=== PATIENT | female | born 1980 | race African-American/Black ===

== ENCOUNTER 2016-08-12 09:21 | Emergency (ER) | payer OTHER ==
[~2016-08-12] VITALS: Ht 165.1 cm; Wt 116.6 kg
[~2016-08-12 09:21] MED LIST: AMITRIPTYLINE25 MG ORAL; ASPIR 8181 MG ORAL; CARDIAZEM CD240 MG ORAL; CARDIZEM30 MG ORAL; CYCLOBENZAPRINE10 MG ORAL; GABAPENTIN600 MG ORAL; IBUPROFEN200 MG ORAL; IBUPROFEN600 MG ORAL; KETOCONAZOLE15 GM TOP; LOPRESSOR25 M1 ORAL; METOPROLOL SUCC25 MG ORAL; NKM; NORCO 5-325 TA1 EACH ORAL; OMEPRAZOLE20 M2 ORAL; PERCOCET 10-321 EAC1 PO; PREDNISONE20 MG ORAL; SOMA350 MG PO; TRAMADOL HCL50 MG ORAL; TRAZODONE HCL100 MG ORAL; WARFARIN SODIUM5 MG ORAL
[2016-08-12] MEDS ORDERED: ATORVASTATIN CA40 MG ORAL (09:50)
[2016-08-12] MEDS ORDERED: DILTIAZEM 24HR120 M1 ORAL (09:50)
[2016-08-12] MEDS ORDERED: XARELTO10 MG ORAL (09:50)
[2016-08-12] MEDS ORDERED: NORCO 10-325 T1 EACH ORAL (09:50)
[2016-08-12] MEDS ORDERED: OMEPRAZOLE20 M2 ORAL (09:52)
[2016-08-12] MEDS ORDERED: IBUPROFEN600 MG ORAL (09:52)
[2016-08-12] MEDS ORDERED: Famotidine 20 MG/ 2ML VIAL IVP ONE (10:00)
[2016-08-12 10:15] VITALS: BP 113/59
[2016-08-12] MEDS ORDERED: Morphine Sulfate 4mg/ml Inj IVP ONE (10:15)
[2016-08-12 10:19] LABS: APPEARANCE,URINE CLOUDY; KETONES,URINE 1+ (NEGATIVE); LEUKOCYTE ESTERASE ,URINE 1+ (NEGATIVE); NITRITE,URINE NEGATIVE (NEGATIVE); PH,URINE 5 (4.5-8.0); PROTEIN,URINE 3+ (NEGATIVE); UROBILINOGEN,URINE NORMAL MG/DL (0.0-1.0)
[2016-08-12 10:25] LABS: BACTERIA,URINE FEW /HPF; MUCUS,URINE FEW /LPF (NONE/OCC); RBC,URINE TNTC /HPF (0 - 2); SQUAMOUS EPITHELIAL CELL,UR FEW /LPF (NONE/OCC)
[2016-08-12 10:32] LABS: BASOPHILS % (AUTO) 1.3 % (0.0-2.0); EOSINOPHILS % (AUTO) 1.2 % (0.0-3.0); MEAN CORPUSCULAR HEMOGLOBIN 25.4 PG (27.0-31.0); MEAN CORPUSCULAR HGB CONC 31.2 G/DL (32.0-36.0); MEAN CORPUSCULAR VOLUME 81 FL (80-99); MEAN PLATELET VOLUME 6.7 FL (6.5-10.1); MONOCYTES % (AUTO) 4.2 % (1.0-10.0); NEUTROPHILS % (AUTO) 66.3 % (45.0-75.0); PLATELET COUNT 378 K/UL (150-450); RED BLOOD COUNT 4.86 M/UL (4.20-5.40); RED CELL DISTRIBUTION WIDTH 14.5 % (11.6-14.8); WHITE BLOOD COUNT 5.1 K/UL (4.8-10.8)
[2016-08-12 10:48] LABS: TROPONIN I < 0.30 ng/mL (<=0.30)
[2016-08-12 10:50] LABS: ALANINE AMINOTRANSFERASE 16 U/L (3-33); ALBUMIN/GLOBULIN RATIO 1.1 (1.0-2.7); ANION GAP 13 (5-15); ASPARTATE AMINO TRANSFERASE 15 U/L (5-40); CALCIUM 9.3 mg/dL (8.6-10.2); CARBON DIOXIDE 26 mEQ/L (20-30); CHLORIDE 99 mEQ/L (98-107); CREATININE 1.2 mg/dL (0.5-0.9); GLOMERULAR FILTRATION RATE > 60 mL/min (>60); HEMOLYSIS 2; LIPASE 33 U/L (< 60); POTASSIUM 3.8 mEQ/L (3.4-4.9); SODIUM 138 mEQ/L (135-145); TOTAL PROTEIN 7.8 g/dL (6.6-8.7)
[2016-08-12] MEDS ORDERED: RANITIDINE HCL150 MG ORAL (11:41)
[2016-08-12] MEDS ORDERED: ZOFRAN ODT4 MG ORAL (11:41)
[2016-08-12 11:50] VITALS: BP 114/72
--- NOTE | 2016-08-12 13:42 | Emergency Room Report ---
History of Present Illness General Chief Complaint: Nausea, Vomiting, and Diarrhea Source: Patient, Medical Record Present Illness HPI 36-year-old female presents to ED complaining of abdominal pain with vomiting and diarrhea x5 days. Pain is epigastric, 8/10, sharp. Nonradiating. No stable episodes of vomiting and diarrhea. Denies fevers or chills. Patient has history of chronic alcohol use and states she's been drinking daily. Denies sick contacts or recent travel. No other aggravating relieving factors. Denies any other associated symptoms Allergies: Coded Allergies: No Known Allergies (Unverified , 10/29/13) Patient History Past Medical History: HTN Past Surgical History: none Pertinent Family History: none Social History: Reports: alcohol use, Denies: drug use, smoking Last Menstrual Period: on period Now: No Immunizations: UTD Reviewed Nursing Documentation: PMH: Agreed, PSxH: Agreed Nursing Documentation-PMH Past Medical History: No History, Except For Hx Cardiac Problems: Yes - SVT (WPW) Hx Hypertension: Yes - PE Hx Cancer: No Hx Gastrointestinal Problems: No Review of Systems All Other Systems: negative except mentioned in HPI Physical Exam Vital Signs Date Time Temp Pulse Resp B/P Pulse Ox O2 Delivery O2 Flow Rate FiO2 08/12/16 09:41 97.2 77 16 129/63 100 Room Air Sp02 EP Interpretation: reviewed, normal General Appearance: no apparent distress, alert, GCS 15, non-toxic, obese Head: normocephalic Eyes: bilateral eye PERRL, bilateral eye normal inspection ENT: normal ENT inspection Neck: normal inspection Respiratory: chest non-tender, lungs clear, normal breath sounds, speaking full sentences Cardiovascular #1: regular rate, rhythm, no edema Gastrointestinal: normal bowel sounds, soft, non-distended, no guarding, no rebound, tenderness - epigastric Rectal: deferred Genitourinary: no CVA tenderness Musculoskeletal: normal inspection Neurologic: alert, oriented x3, responsive, motor strength/tone normal, sensory intact, speech normal Psychiatric: normal inspection Skin: normal inspection Lymphatic: normal inspection Medical Decision Making Diagnostic Impression: Primary Impression: Gastroenteritis ER Course Hospital Course 36-year-old F presents to ED with cramping abdominal pain with vomiting, diarrhea differential diagnosis: gastritis, SBO, cholecystits, gastroenteritis Clinical course Patient placed on stretcher. On quality assurance monitor final. After initial history and physical I ordered labs, IV fluids, Zofran and pepcid Labs - no leukocytosis, Cr 1.2, LFTs normal, UA unremarkable Upon reassessment, patient states pain has improved. findings consistent with gastroenteritis I feel this is a highly complex case requiring extensive working including EKG/ Rhythm strip, Xray/CT/US, Blood/urine lab work, repeat exams while in ED, and administration of strong opiates/narcotics for pain control, admission to hospital or close patient follow up. Diagnosis - gastroenteritis Stable and discharged to home with prescriptions for Zantac, zofran. Followup with PMD. Return to ED if symptoms recur or worsen Labs Test 08/12/16 09:35 08/12/16 09:58 Urine Color Red Urine Appearance Cloudy Urine pH 5 (4.5-8.0) Urine Specific [place] 1.025 (1.005-1.035) Urine Protein 3+ (NEGATIVE) Urine Glucose (UA) Negative (NEGATIVE) Urine Ketones 1+ (NEGATIVE) Urine Occult Blood 5+ (NEGATIVE) Urine Nitrite Negative (NEGATIVE) Urine Bilirubin Negative (NEGATIVE) Urine Urobilinogen Normal MG/DL (0.0-1.0) Urine Leukocyte Esterase 1+ (NEGATIVE) Urine RBC Tntc /HPF (0 - 2) Urine WBC 2-4 /HPF (0 - 2) Urine Squamous Epithelial Cells Few /LPF (NONE/OCC) Urine Bacteria Few /HPF (NONE) Urine Mucus Few /LPF (NONE/OCC) Urine HCG, Qualitative Negative White Blood Count 5.1 K/UL (4.8-10.8) Red Blood Count 4.86 M/UL (4.20-5.40) Hemoglobin 12.3 G/DL (12.0-16.0) Hematocrit 39.5 % (37.0-47.0) Mean Corpuscular Volume 81 FL (80-99) Mean Corpuscular Hemoglobin 25.4 PG (27.0-31.0) Mean Corpuscular Hemoglobin Concent 31.2 G/DL (32.0-36.0) Red Cell Distribution Width 14.5 % (11.6-14.8) Platelet Count 378 K/UL (150-450) Mean Platelet Volume 6.7 FL (6.5-10.1) Neutrophils (%) (Auto) 66.3 % (45.0-75.0) Lymphocytes (%) (Auto) 27.0 % (20.0-45.0) Monocytes (%) (Auto) 4.2 % (1.0-10.0) Eosinophils (%) (Auto) 1.2 % (0.0-3.0) Basophils (%) (Auto) 1.3 % (0.0-2.0) Sodium Level 138 mEQ/L (135-145) Potassium Level 3.8 mEQ/L (3.4-4.9) Chloride Level 99 mEQ/L (98-107) Carbon Dioxide Level 26 mEQ/L (20-30) Anion Gap 13 (5-15) Blood Urea Nitrogen 6 mg/dL (7-23) Creatinine 1.2 mg/dL (0.5-0.9) Estimat Glomerular Filtration Rate > 60 mL/min (>60) Glucose Level 111 mg/dL (74-106) Calcium Level 9.3 mg/dL (8.6-10.2) Total Bilirubin 0.3 mg/dL (0.0-1.2) Aspartate Amino Transf (AST/SGOT) 15 U/L (5-40) Alanine Aminotransferase (ALT/SGPT) 16 U/L (3-33) Alkaline Phosphatase 63 U/L (35-104) Troponin I < 0.30 ng/mL (<=0.30) Total Protein 7.8 g/dL (6.6-8.7) Albumin 4.2 g/dL (3.5-5.2) Globulin 3.6 g/dL Albumin/Globulin Ratio 1.1 (1.0-2.7) Lipase 33 U/L (< 60) EKG Diagnostic Results Rate: normal Rhythm: NSR ST Segments: no acute changes ASA given to the pt in ED: No Rhythm Strip Diag. Results EP Interpretation: yes Rhythm: NSR, no PVC's, no ectopy Last Vital Signs Date Time Temp Pulse Resp B/P Pulse Ox O2 Delivery O2 Flow Rate FiO2 08/12/16 11:50 70 20 114/72 100 Room Air 08/12/16 10:52 97.2 Status: improved Disposition: HOME, SELF-CARE Condition: Stable Scripts Ranitidine Hcl* (ZANTAC*) 150 Mg Tablet 150 MG ORAL TWICE A DAY, #30 TAB Prov: CAM PALMA M.D. 08/12/16 Ondansetron Odt* (ZOFRAN ODT*) 4 Mg Tab.rapdis 4 MG ORAL Q6H Y for Nausea & Vomiting, #30 TAB 0 Refills Prov: CAM PALMA M.D. 08/12/16 Patient Instructions: Viral Gastroenteritis, Adult, [id number] CAM PALMA M.D. Aug 12, 2016 13:42
--- NOTE | 2016-08-16 16:17 | Cardiology Report ---
APPROVED REPORT EKG Measurement Heart [id number] Normal sinus rhythm with sinus arrhythmia Normal ECG
== END 2016-08-12 11:56 | disposition home or self-care (01) ==
LOC: EMR 10:00
DX: K52.9 Noninfective gastroenteritis and colitis, unspecified (principal); F10.20 Alcohol dependence, uncomplicated; I10 Essential (primary) hypertension; Z86.711 Personal history of pulmonary embolism
CPT/HCPCS: 36415; 80053; 81003; 81025; 83690; 84484; 85025; 93005; 96374; 96375; 99284; J2270; J2405; S0028

== ENCOUNTER 2017-05-17 09:31 | Inpatient (IN) | payer OTHER ==
[~2017-05-17] VITALS: Ht 165.1 cm; Wt 95.3 kg
[~2017-05-17 09:31] MED LIST changes: +ATORVASTATIN CA40 MG ORAL; +DILTIAZEM 24HR120 M1 ORAL; +NORCO 10-325 T1 EACH ORAL; +RANITIDINE HCL150 MG ORAL; +XARELTO10 MG ORAL; +ZOFRAN ODT4 MG ORAL
[2017-05-17 10:48] LABS: APPEARANCE,URINE SLIGHTLY CLOUDY; BILIRUBIN, URINE NEGATIVE (NEGATIVE); GLUCOSE, URINE (UA) NEGATIVE (NEGATIVE); KETONES,URINE NEGATIVE (NEGATIVE); LEUKOCYTE ESTERASE ,URINE 1+ (NEGATIVE); NITRITE,URINE NEGATIVE (NEGATIVE); PH,URINE 5 (4.5-8.0); PROTEIN,URINE 1+ (NEGATIVE); UROBILINOGEN,URINE NORMAL MG/DL (0.0-1.0)
[2017-05-17 10:49] LABS: COLOR,URINE YELLOW
[2017-05-17 11:10] LABS: BASOPHILS % (AUTO) 0.8 % (0.0-2.0); EOSINOPHILS % (AUTO) 0.3 % (0.0-3.0); HEMOGLOBIN 11.6 G/DL (12.0-16.0); LYMPHOCYTES % (AUTO) 27.1 % (20.0-45.0); MEAN CORPUSCULAR VOLUME 82 FL (80-99); NEUTROPHILS % (AUTO) 67.9 % (45.0-75.0); PLATELET COUNT 393 K/UL (150-450); RED BLOOD COUNT 4.51 M/UL (4.20-5.40); RED CELL DISTRIBUTION WIDTH 13.4 % (11.6-14.8); WHITE BLOOD COUNT 5.5 K/UL (4.8-10.8)
[2017-05-17 11:26] LABS: ANION GAP 9 mmol/L (5-15); BLOOD UREA NITROGEN 7 mg/dL (7-18); CARBON DIOXIDE 28 MMOL/L (21-32); CHLORIDE 105 MMOL/L (98-107); CREATININE 1.2 MG/DL (0.55-1.30); POTASSIUM 3.8 MMOL/L (3.5-5.1); SODIUM 142 MMOL/L (136-145)
[2017-05-17 11:31] LABS: ALANINE AMINOTRANSFERASE 19 U/L (12-78); ALBUMIN 3.7 G/DL (3.4-5.0); ALBUMIN/GLOBULIN RATIO 0.9 (1.0-2.7); ALKALINE PHOSPHATASE 64 U/L (46-116); ASPARTATE AMINO TRANSFERASE 17 U/L (15-37); BILIRUBIN,TOTAL 0.4 MG/DL (0.2-1.0)
[2017-05-17] MEDS ORDERED: Ketorolac 30mg Inj IV ONE (11:45)
[2017-05-17] MEDS ORDERED: Lidocaine 2% Visc 15ml soln ORAL ONE (13:45)
[2017-05-17] MEDS ORDERED: Mylanta II UD 30ml ORAL PRN (17:00)
[2017-05-17] MEDS ORDERED: LORazepam Inj 2mg/ml 1ml IV PRN (17:00)
[2017-05-17] MEDS ORDERED: Miralax 17gm pkt ORAL PRN (17:00)
[2017-05-17] MEDS ORDERED: Nitroglycerin Subl 0.4mg tab SL PRN (17:00)
[2017-05-17 17:30] VITALS: BP 124/67
[2017-05-17] MEDS: D5 1/2NS 1,000 ML IV SCH (18:02)
[2017-05-17] MEDS: Morphine Sulfate 2mg/ml Inj IVP PRN ×2 (19:12→23:58)
--- NOTE | 2017-05-17 19:15 | Consultation ---
History of Present Illness General Date patient seen: May 17, 2017 Chief Complaint: Abdominal Pain Reason for Consultation: inpatient manangement Present Illness HPI 37 year old female with extensive PMH including SVt, PE, was taken to [facility] with CC of abodminal pain. She is transferred to [facility] for further evaluation. Allergies: Coded Allergies: No Known Allergies (Unverified , 10/29/13) Medication History Scheduled Amitriptyline HCl (Elavil*), 50 MG ORAL BEDTIME, (Reported) Atorvastatin Calcium* (Atorvastatin Calcium*), 40 MG ORAL BEDTIME, (Reported) Cyclobenzaprine Hcl* (Flexeril*), 5 MG ORAL THREE TIMES A DAY, (Reported) Diltiazem HCl (Diltiazem 24Hr Cd), 240 MG ORAL DAILY Gabapentin* (Gabapentin*), 600 MG ORAL THREE TIMES A DAY, (Reported) Ibuprofen (Ibuprofen*), 600 MG ORAL THREE TIMES A DAY, (Reported) Metoprolol Succinate* (Metoprolol Succinate*), 25 MG ORAL DAILY, (Reported) No Known Medications* (NKM - No Known Medications*), 0 ., (Reported) Omeprazole (Omeprazole), 20 MG ORAL DAILY, (Reported) Omeprazole (Omeprazole), 20 MG ORAL DAILY, (Reported) Ranitidine Hcl* (Zantac*), 150 MG ORAL TWICE A DAY Rivaroxaban (Xarelto*), 15 MG ORAL DAILY, (Reported) Trazodone Hcl* (Desyrel*), 100 MG ORAL BEDTIME, (Reported) Warfarin Sod* (Warfarin Sod*), 10 MG ORAL DAILY Scheduled PRN Hydrocodone Bit/Acetaminophen 10-325* ([place] 10-325*), 1 TAB ORAL Q4H PRN for For Pain, (Reported) Ibuprofen* (Motrin*), 600 MG ORAL Q8H PRN for For Pain Ibuprofen* (Motrin*), 800 MG ORAL Q8H PRN for For Pain, (Reported) Ondansetron Odt* (Zofran Odt*), 4 MG ORAL Q6H PRN for Nausea & Vomiting Tramadol Hcl* (Ultram*), 50 MG ORAL Q6H PRN for For Pain Miscellaneous Medications Ibuprofen (Ibuprofen*), 200 MG ORAL, (Reported) Patient History Healthcare decision maker Resuscitation status Full Code Advanced Directive on File No Past Medical/Surgical History Past Medical/Surgical History: (1) Wkwoa-Sdyaggueu-Gpnog (WPW) syndrome (2) Pulmonary embolism (3) SVT (supraventricular tachycardia) (4) GERD (gastroesophageal reflux disease) Review of Systems Gastrointestinal: Reports: abdominal pain All Other Systems: negative except mentioned in HPI Physical Exam General Appearance: WD/WN Lines, tubes and drains: peripheral, central line HEENT: normocephalic, atraumatic Neck: normal alignment, supple Respiratory/Chest: chest wall non-tender, normal breath sounds Breasts: no masses Cardiovascular/Chest: normal rate Abdomen: normal bowel sounds Genitourinary/Rectal: normal genital exam Extremities: normal range of motion Last 24 Hour Vital Signs Date Time Temp Pulse Resp B/P (MAP) Pulse Ox O2 Delivery O2 Flow Rate FiO2 05/17/17 17:30 69 21 124/67 97 Room Air 05/17/17 17:13 98.0 05/17/17 16:58 98.0 69 19 98 Room Air 05/17/17 09:39 98.1 73 14 136/71 98 Room Air Laboratory Tests Test 05/17/17 10:00 05/17/17 10:40 Urine Color Yellow Urine Appearance Slightly cloudy Urine pH 5 (4.5-8.0) Urine Specific [place] 1.020 (1.005-1.035) Urine Protein 1+ (NEGATIVE) H Urine Glucose (UA) Negative (NEGATIVE) Urine Ketones Negative (NEGATIVE) Urine Occult Blood 5+ (NEGATIVE) H Urine Nitrite Negative (NEGATIVE) Urine Bilirubin Negative (NEGATIVE) Urine Urobilinogen Normal MG/DL (0.0-1.0) Urine Leukocyte Esterase 1+ (NEGATIVE) H Urine RBC 5-10 /HPF (0 - 2) H Urine WBC 2-4 /HPF (0 - 2) Urine Squamous Epithelial Cells Few /LPF (NONE/OCC) Urine Bacteria Few /HPF (NONE) Urine HCG, Qualitative Negative White Blood Count 5.5 K/UL (4.8-10.8) Red Blood Count 4.51 M/UL (4.20-5.40) Hemoglobin 11.6 G/DL (12.0-16.0) L Hematocrit 37.0 % (37.0-47.0) Mean Corpuscular Volume 82 FL (80-99) Mean Corpuscular Hemoglobin 25.7 PG (27.0-31.0) L Mean Corpuscular Hemoglobin Concent 31.4 G/DL (32.0-36.0) L Red Cell Distribution Width 13.4 % (11.6-14.8) Platelet Count 393 K/UL (150-450) Mean Platelet Volume 6.3 FL (6.5-10.1) L Neutrophils (%) (Auto) 67.9 % (45.0-75.0) Lymphocytes (%) (Auto) 27.1 % (20.0-45.0) Monocytes (%) (Auto) 4.0 % (1.0-10.0) Eosinophils (%) (Auto) 0.3 % (0.0-3.0) Basophils (%) (Auto) 0.8 % (0.0-2.0) Sodium Level 142 MMOL/L (136-145) Potassium Level 3.8 MMOL/L (3.5-5.1) Chloride Level 105 MMOL/L (98-107) Carbon Dioxide Level 28 MMOL/L (21-32) Anion Gap 9 mmol/L (5-15) Blood Urea Nitrogen 7 mg/dL (7-18) Creatinine 1.2 MG/DL (0.55-1.30) Estimat Glomerular Filtration Rate > 60 mL/min (>60) Glucose Level 89 MG/DL (74-106) Calcium Level 9.0 MG/DL (8.5-10.1) Total Bilirubin 0.4 MG/DL (0.2-1.0) Aspartate Amino Transf (AST/SGOT) 17 U/L (15-37) Alanine Aminotransferase (ALT/SGPT) 19 U/L (12-78) Alkaline Phosphatase 64 U/L (46-116) Total Protein 8.0 G/DL (6.4-8.2) Albumin 3.7 G/DL (3.4-5.0) Globulin 4.3 g/dL Albumin/Globulin Ratio 0.9 (1.0-2.7) L Lipase 115 U/L (73-393) Height (Feet): 5 Height (Inches): 5.00 Weight (Pounds): 210 Medications Current Medications Medications (Trade) Dose Ordered Sig/Shanelle Route PRN Reason Start Time Stop Time Status Last Admin Dose Admin Acetaminophen (Tylenol) 650 mg Q4H PRN ORAL fever 05/17/17 17:00 06/16/17 16:59 Al Hydroxide/Mg Hydroxide (Mylanta II) 30 ml Q6H PRN ORAL dyspepsia 05/17/17 17:00 06/16/17 16:59 Dextrose (Dextrose 50%) STAT PRN IV Hypoglycemia 05/17/17 17:00 06/16/17 16:59 Dextrose/Sodium Chloride 1,000 ml @ 75 mls/hr [id number] IV 05/17/17 18:00 06/16/17 17:59 05/17/17 18:02 Diphenhydramine HCl (Benadryl) 25 mg Q6H PRN ORAL Itching/Pruritis 05/17/17 17:00 06/16/17 16:59 Heparin Sodium (Porcine) (Heparin 5000 units/ml) 5,000 units EVERY 12 HOURS SUBQ 05/17/17 21:00 06/16/17 20:59 Lorazepam (Ativan 2mg/ml 1ml) 1 mg Q4H PRN IV agitation 05/17/17 17:00 05/24/17 16:59 Morphine Sulfate (Morphine Sulfate) 2 mg Q4H PRN IVP severe Pain (Pain Scale 7-10) 05/17/17 17:00 05/24/17 16:59 05/17/17 19:12 Nitroglycerin (Ntg) 0.4 mg Q5M X 3 DOSES PRN SL Prn Chest Pain 05/17/17 17:00 06/16/17 16:59 Ondansetron HCl (Zofran) 4 mg Q6H PRN IVP Nausea & Vomiting 05/17/17 17:00 06/16/17 16:59 Pantoprazole (Protonix) 40 mg DAILY IV 05/18/17 09:00 06/17/17 08:59 Polyethylene Glycol (Miralax) 17 gm HSPRN PRN ORAL Constipation 05/17/17 17:00 06/16/17 16:59 Promethazine HCl (Phenergan) 25 mg Q8H PRN IV refractory nausea 05/17/17 17:00 06/16/17 16:59 Temazepam (Restoril) 15 mg HSPRN PRN ORAL Insomnia 05/17/17 17:00 05/24/17 16:59 Assessment/Plan Problem List: (1) Epigastric abdominal pain ICD Codes: R10.13 - Epigastric pain SNOMED: 76466646 (2) Nausea & vomiting ICD Codes: R11.2 - Nausea with vomiting, unspecified SNOMED: 06692565 (3) Gslop-Oaqgoqjfu-Mxgqj (WPW) syndrome ICD Codes: I45.6 - Pre-excitation syndrome SNOMED: 80448675 (4) HTN (hypertension) ICD Codes: I10 - Essential (primary) hypertension SNOMED: 80025003 (5) Pulmonary embolism ICD Codes: I26.99 - Other pulmonary embolism without acute cor pulmonale SNOMED: 22593645 (6) SVT (supraventricular tachycardia) ICD Codes: I47.1 - Supraventricular tachycardia SNOMED: 1310095 Assessment/Plan NPO GI evaluation Surgery evaluation IV fluids symptomatic treatment LARY REYNA May 17, 2017 19:15
--- NOTE | 2017-05-17 19:19 | History & Physical ---
History and Physical History & Physicial Dictated for Int Med-Dr Blanca no. [id number]. ALFREDO CARDENAS May 17, 2017 19:19
[2017-05-17 20:00] VITALS: BP 101/77
--- NOTE | 2017-05-17 20:30 | History and Physical Report ---
DATE OF ADMISSION: 05/17/2017 CHIEF COMPLAINT: The patient is a 37-year-old female, presents with chief complaint of nausea, vomiting, and abdominal pain. HISTORY OF PRESENT ILLNESS: The patient states present illness began approximately nine months ago. The patient began to experience nausea and vomiting. This usually occurs early in the morning. This wakes her from sleep from 5 a.m. The patient then experiences nausea, vomiting, and abdominal pain for approximately five hours in the morning. The patient has seen her primary care physician. The patient was referred to Gastroenterology, however, the patient states the appointment was . The patient presents to [facility] today with intractable nausea, vomiting, and abdominal pain. REVIEW OF SYSTEMS: CONSTITUTIONAL: The patient denies weight loss or weight gain. The patient denies fevers or chills. HEENT: The patient denies ear or throat pain. The patient denies headache. CARDIOVASCULAR: The patient denies palpitations or chest pain. CHEST: The patient denies wheezes or shortness of breath. ABDOMINAL: The patient complains of nausea, vomiting, and epigastric pain as above. The patient denies diarrhea or constipation. GENITOURINARY: The patient denies dysuria or increased frequency of urination. NEUROMUSCULAR: The patient denies seizures or generalized weakness. PAST MEDICAL HISTORY: 1. Significant for Zsiex-Jzbufjiab-Xelfn syndrome, status post ablation. 2. History of supraventricular tachycardia. 3. History of coronary artery disease. 4. History of pulmonary embolism in 2015. PAST SURGICAL HISTORY: Significant for: 1. Ablation of supraventricular tachycardia in the as above. 2. Failed ablation of SVT in 2014. CURRENT MEDICATIONS: 1. Amitriptyline 25 mg two tablets p.o. at bedtime. 2. Atorvastatin 40 mg p.o. at bedtime. 3. Flexeril 5 mg p.o. three times daily. 4. Diltiazem ER 240 mg p.o. daily. 5. Gabapentin 600 mg p.o. three times daily. 6. [place] 10/325 mg one tablet p.o. q.4 hours p.r.n. 7. Ibuprofen 200 mg p.o. q.6 hours p.r.n. 8. Metoprolol 25 mg p.o. daily. 9. Omeprazole 20 mg p.o. daily. 10. Zofran 4 mg p.o. q.6 hours p.r.n. 11. Zantac 150 mg p.o. twice daily. 12. Xarelto 15 mg p.o. daily. 13. Tramadol 50 mg two tablets p.o. at bedtime. ALLERGIES: No known drug allergies. SOCIAL HISTORY: The patient is single. The patient is disabled. The patient denies tobacco use, having quit in 2015. The patient denies alcohol use. PHYSICAL EXAMINATION: VITAL SIGNS: Temperature 98.1, respirations 14, pulse 73, and blood pressure 136/71. GENERAL: The patient is well-developed and well-nourished obese female, in no apparent distress. HEENT: Eyes, pupils equal and responsive to light and accommodation. Extraocular movements are intact. NECK: Supple without lymphadenopathy. CHEST: Lungs are clear to auscultation bilaterally without wheezes or rales. CARDIOVASCULAR: Regular rhythm and rate. S1, S2 are normal without murmurs, rubs, or gallops. ABDOMEN: Soft, tender to palpation in all four quadrants, with positive bowel sounds. No evidence of hepatosplenomegaly. Currently, no rebound or guarding noted. EXTREMITIES: Negative for clubbing, cyanosis, or edema. RECTAL/GENITAL: Refused. NEUROLOGIC: Cranial nerves II through XII are grossly intact without focal deficits. Motor strength is 5/5 bilaterally. LABORATORY STUDIES: WBC 6.5, hemoglobin 11.6, hematocrit 37.0, and platelets 393,000. Sodium 142, potassium 3.8, chloride 105, CO2 28, BUN 7, creatinine 1.2, and glucose 89. ASSESSMENT: This is a 37-year-old female with: 1. Epigastric pain. 2. Intractable nausea with vomiting. 3. Supraventricular tachycardia. 4. Wgmht-Gahsdtpoj-Irkqg syndrome. 5. Hypertension. 6. History of coronary artery disease. TREATMENT: 1. Epigastric pain/nausea/vomiting. A Gastroenterology consultation has been obtained with Dr. Roni Lewis. The patient may require endoscopy during this hospitalization. The patient has been placed empirically on a clear liquid diet. 2. Supraventricular tachycardia/Xtasb-Tkkbwwqtw-Wbgij syndrome. A Cardiology consultation has been obtained with Dr. Jj Escamilla. 3. Hypertension. Continue Cardizem and metoprolol as above. 4. Coronary artery disease. 5. History of pulmonary embolism. Continue Xarelto as above. Jone Elizabeth M.D. DR: CASSIE JOB#: [id number] CC:
[2017-05-17] MEDS: Heparin 5000 units/ml inj SUBQ SCH (21:01)
[2017-05-18] VITALS: BP 103/76
[2017-05-18 04:00] VITALS: BP 120/78
[2017-05-18] MEDS: D5 1/2NS 1,000 ML IV SCH ×2 (06:02→20:40)
[2017-05-18 07:44] LABS: HEMOGLOBIN 10.2 G/DL (12.0-16.0); MEAN CORPUSCULAR VOLUME 82 FL (80-99); PLATELET COUNT 284 K/UL (150-450); RED BLOOD COUNT 3.79 M/UL (4.20-5.40); RED CELL DISTRIBUTION WIDTH 13.6 % (11.6-14.8); WHITE BLOOD COUNT 4.4 K/UL (4.8-10.8)
[2017-05-18 08:00] VITALS: BP 122/79
[2017-05-18 08:06] LABS: ALANINE AMINOTRANSFERASE 18 U/L (12-78); ALBUMIN/GLOBULIN RATIO 0.8 (1.0-2.7); ALKALINE PHOSPHATASE 53 U/L (46-116); AMYLASE 64 U/L (25-115); ANION GAP 8 mmol/L (5-15); ASPARTATE AMINO TRANSFERASE 15 U/L (15-37); BILIRUBIN,TOTAL 0.4 MG/DL (0.2-1.0); BLOOD UREA NITROGEN 8 mg/dL (7-18); CALCIUM 8.6 MG/DL (8.5-10.1); CARBON DIOXIDE 27 MMOL/L (21-32); CHLORIDE 106 MMOL/L (98-107); CREATININE 1.2 MG/DL (0.55-1.30); POTASSIUM 3.7 MMOL/L (3.5-5.1); SODIUM 141 MMOL/L (136-145)
[2017-05-18] MEDS: Morphine Sulfate 2mg/ml Inj IVP PRN ×4 (08:34→20:40)
[2017-05-18] MEDS: Pantoprazole Inj IV SCH (08:34)
[2017-05-18] MEDS: Heparin 5000 units/ml inj SUBQ SCH ×2 (08:40→20:41)
[2017-05-18 12:00] VITALS: BP 131/73
--- NOTE | 2017-05-18 13:13 | GI Initial Consult Note ---
History of Present Illness General Date patient seen: May 18, 2017 Time patient seen: 11:00 Reason for Hospitalization: Abdominal Pain Referring physician: CHAVEZ CARTER Reason for Consultation: VOMITTING Present Illness HPI HISTORY OF PRESENT ILLNESS: The patient states present illness began approximately nine months ago. The patient began to experience nausea and vomiting. This usually occurs early in the morning. This wakes her from sleep from 5 a.m. The patient then experiences nausea, vomiting, and abdominal pain for approximately five hours in the morning. The patient has seen her primary care physician. The patient presents to [facility] today with intractable nausea, vomiting, and abdominal pain. GI consulted for vomiting. HPI noted above. Pt seen on floor, awake A&Ox4 NAD with no active s/sx of N/V/D. Per patient she's had random bouts of vomiting for the past 9 months with multiple hospital admissions with no definitive diagnosis. She presents to [place] today with similar condition c/ o of previous vomiting and diffused abdominal pain. Denies any hematemesis or coffee grounds. She denies any tobacco and drug use. Has quit ETOH 9 months ago when her vomiting began. Labs reviewed show anemia. No leukocytosis. Lipase normal. No history of endoscopic procedures. Home Meds Active Scripts Ranitidine Hcl* (ZANTAC*) 150 Mg Tablet, 150 MG ORAL TWICE A DAY, #30 TAB Prov:CAM PALMA M.D. 08/12/16 Ondansetron Odt* (ZOFRAN ODT*) 4 Mg Tab.rapdis, 4 MG ORAL Q6H Y for Nausea & Vomiting, #30 TAB 0 Refills Prov:CAM PALMA M.D. 08/12/16 Warfarin Sod* (WARFARIN SOD*) 5 Mg Tablet, 10 MG ORAL DAILY, #60 TAB 3 Refills Prov:Anthony Arreaga MD 11/14/15 Diltiazem HCl (Diltiazem 24Hr Cd) 240 Mg Cap.er.24h, 240 MG ORAL DAILY, #30 CAP 3 Refills Do not open, chew or crush capsule; swallow whole Prov:Anthony Arreaga MD 11/14/15 Ibuprofen* (MOTRIN*) 600 Mg Tablet, 600 MG ORAL Q8H Y for For Pain, #30 TAB 0 Refills Prov:CAM PALMA M.D. 02/28/15 Tramadol Hcl* (ULTRAM*) 50 Mg Tablet, 50 MG ORAL Q6H Y for For Pain, #20 TAB Prov:VAMSHI JIMENEZ 07/31/14 Reported Medications Omeprazole (OMEPRAZOLE) 20 Mg Capsule.dr, 20 MG ORAL DAILY, CAP 08/12/16 Ibuprofen* (MOTRIN*) 600 Mg Tablet, 800 MG ORAL Q8H Y for For Pain, #30 TAB 0 Refills 08/12/16 Hydrocodone Bit/Acetaminophen 10-325* (NORCO 10-325*) 1 Each Tablet, 1 TAB ORAL Q4H Y for For Pain, TAB 0 Refills PRN PAIN 08/12/16 Rivaroxaban (XARELTO*) 10 Mg Tablet, 15 MG ORAL DAILY, #30 TAB 0 Refills 08/12/16 Atorvastatin Calcium* (ATORVASTATIN CALCIUM*) 40 Mg Tablet, 40 MG ORAL BEDTIME, TAB 08/12/16 Cyclobenzaprine Hcl* (FLEXERIL*) 10 Mg Tablet, 5 MG ORAL THREE TIMES A DAY, TAB 11/02/15 Metoprolol Succinate* (METOPROLOL SUCCINATE*) 25 Mg Tab.er.24h, 25 MG ORAL DAILY , TAB 11/02/15 Omeprazole (OMEPRAZOLE) 20 Mg Capsule.dr, 20 MG ORAL DAILY, CAP 11/02/15 Gabapentin* (GABAPENTIN*) 600 Mg Tablet, 600 MG ORAL THREE TIMES A DAY, TAB 11/02/15 Trazodone Hcl* (DESYREL*) 100 Mg Tablet, 100 MG ORAL BEDTIME, TAB 02/28/15 Amitriptyline HCl (ELAVIL*) 25 Mg Tab, 50 MG ORAL BEDTIME, TAB 02/28/15 Ibuprofen (IBUPROFEN*) 200 Mg Tablet, 600 MG ORAL THREE TIMES A DAY, #30 TAB 0 Refills 02/28/15 Ibuprofen (IBUPROFEN*) 200 Mg Tablet, 200 MG ORAL, #30 TAB 0 Refills 02/28/15 No Known Medications* (NKM - No Known Medications*) ., 0 ., 0 Refills 11/24/13 Med list reviewed/reconciled: Yes Allergies: Coded Allergies: No Known Allergies (Unverified , 10/29/13) Patient History History Provided By: Patient, Medical Record PMH Narrative 1. Significant for Wmhct-Xoaanccph-Mdtbt syndrome, status post ablation. 2. History of supraventricular tachycardia. 3. History of coronary artery disease. 4. History of pulmonary embolism in 2016. PAST SURGICAL HISTORY: Significant for: 1. Ablation of supraventricular tachycardia in the as above. 2. Failed ablation of SVT in 2014. Social History: Denies: smoking, alcohol use, drug use, other Review of Systems All Other Systems: negative except mentioned in HPI Physical Exam Vital Signs Date Time Temp Pulse Resp B/P (MAP) Pulse Ox O2 Delivery O2 Flow Rate FiO2 05/17/17 09:39 98.1 73 14 136/71 98 Room Air Sp02 EP Interpretation: reviewed, normal Labs Laboratory Tests Test 05/18/17 05:35 White Blood Count 4.4 K/UL (4.8-10.8) L Red Blood Count 3.79 M/UL (4.20-5.40) L Hemoglobin 10.2 G/DL (12.0-16.0) L Hematocrit 31.0 % (37.0-47.0) L Mean Corpuscular Volume 82 FL (80-99) Mean Corpuscular Hemoglobin 26.9 PG (27.0-31.0) L Mean Corpuscular Hemoglobin Concent 32.9 G/DL (32.0-36.0) Red Cell Distribution Width 13.6 % (11.6-14.8) Platelet Count 284 K/UL (150-450) Mean Platelet Volume 6.7 FL (6.5-10.1) Neutrophils (%) (Auto) % (45.0-75.0) Lymphocytes (%) (Auto) % (20.0-45.0) Monocytes (%) (Auto) % (1.0-10.0) Eosinophils (%) (Auto) % (0.0-3.0) Basophils (%) (Auto) % (0.0-2.0) Neutrophils % (Manual) Pending Lymphocytes % (Manual) Pending Platelet Estimate Pending Platelet Morphology Pending Activated Partial Thromboplast Time 31 SEC (23-33) Sodium Level 141 MMOL/L (136-145) Potassium Level 3.7 MMOL/L (3.5-5.1) Chloride Level 106 MMOL/L (98-107) Carbon Dioxide Level 27 MMOL/L (21-32) Anion Gap 8 mmol/L (5-15) Blood Urea Nitrogen 8 mg/dL (7-18) Creatinine 1.2 MG/DL (0.55-1.30) Estimat Glomerular Filtration Rate > 60 mL/min (>60) Glucose Level 83 MG/DL (74-106) Calcium Level 8.6 MG/DL (8.5-10.1) Total Bilirubin 0.4 MG/DL (0.2-1.0) Aspartate Amino Transf (AST/SGOT) 15 U/L (15-37) Alanine Aminotransferase (ALT/SGPT) 18 U/L (12-78) Alkaline Phosphatase 53 U/L (46-116) Total Protein 6.6 G/DL (6.4-8.2) Albumin 3.0 G/DL (3.4-5.0) L Globulin 3.6 g/dL Albumin/Globulin Ratio 0.8 (1.0-2.7) L Amylase Level 64 U/L (25-115) Lipase 120 U/L (73-393) General Appearance: well appearing, no apparent distress, alert, obese Head: normocephalic EENT: PERRL/EOMI, normal ENT inspection Neck: supple Respiratory: normal breath sounds, no respiratory distress Cardiovascular: normal rate Gastrointestinal: normal inspection, non tender, soft, normal bowel sounds, non -distended Rectal: deferred Genitourinary: no CVA tenderness Musculoskeletal: normal inspection, back normal Neurologic: normal inspection, alert, oriented x3, responsive Psychiatric: normal inspection, judgement/insight normal, memory normal Skin: normal inspection, normal color, no rash, warm/dry, palpation normal, well hydrated Lymphatic: normal inspection, no adenopathy Current Medications Current Medications Medications (Trade) Dose Ordered Sig/Shanelle Route PRN Reason Start Time Stop Time Status Last Admin Dose Admin Acetaminophen (Tylenol) 650 mg Q4H PRN ORAL fever 05/17/17 17:00 06/16/17 16:59 Al Hydroxide/Mg Hydroxide (Mylanta II) 30 ml Q6H PRN ORAL dyspepsia 05/17/17 17:00 06/16/17 16:59 Dextrose (Dextrose 50%) STAT PRN IV Hypoglycemia 05/17/17 17:00 06/16/17 16:59 Dextrose/Sodium Chloride 1,000 ml @ 75 mls/hr [id number] IV 05/17/17 18:00 2/10/18 17:59 05/18/17 06:02 Diphenhydramine HCl (Benadryl) 25 mg Q6H PRN ORAL Itching/Pruritis 05/17/17 17:00 06/16/17 16:59 Heparin Sodium (Porcine) (Heparin 5000 units/ml) 5,000 units EVERY 12 HOURS SUBQ 05/17/17 21:00 06/16/17 20:59 05/18/17 08:40 Lorazepam (Ativan 2mg/ml 1ml) 1 mg Q4H PRN IV agitation 05/17/17 17:00 05/24/17 16:59 Morphine Sulfate (Morphine Sulfate) 2 mg Q4H PRN IVP severe Pain (Pain Scale 7-10) 05/17/17 17:00 05/24/17 16:59 05/18/17 12:40 Nitroglycerin (Ntg) 0.4 mg Q5M X 3 DOSES PRN SL Prn Chest Pain 05/17/17 17:00 06/16/17 16:59 Ondansetron HCl (Zofran) 4 mg Q6H PRN IVP Nausea & Vomiting 05/17/17 17:00 06/16/17 16:59 Pantoprazole (Protonix) 40 mg DAILY IV 05/18/17 09:00 06/17/17 08:59 05/18/17 08:34 Polyethylene Glycol (Miralax) 17 gm HSPRN PRN ORAL Constipation 05/17/17 17:00 06/16/17 16:59 Promethazine HCl (Phenergan) 25 mg Q8H PRN IV refractory nausea 05/17/17 17:00 06/16/17 16:59 Temazepam (Restoril) 15 mg HSPRN PRN ORAL Insomnia 05/17/17 17:00 05/24/17 16:59 05/17/17 21:11 GI: Plan Problems: (1) Vomiting (2) GERD (gastroesophageal reflux disease) Plan ordered utox ordered UGI series r/o dysmotility, will consider gastric emptying study or endoscopy if necessary low dose reglan ATC CLD, adv as tolerated anemia work up OB stool r/o GI bleed monitor H&H, prn transfusions bowel regime ppi PO fu labs Discussed with Dr. Lewis. Thank you for this patient referral, we will follow. Martina Arenas N.P. May 18, 2017 13:13
[2017-05-18 16:00] VITALS: BP 122/77
--- NOTE | 2017-05-18 16:19 | Diagnostic Imaging Report ---
Indication: Abdominal pain Technique: The plantar grayscale and color Doppler imaging of the abdomen. Comparison: CT of the abdomen/pelvis 11/12/2015. Findings: Imaged portions of the pancreatic head are unremarkable in appearance. The body and tail are not seen. Liver is normal in size, contour and echogenicity. There is a focus of hyperechogenicity in the liver which most likely is related to fat along the falciform ligament. No focal liver lesion is appreciated sonographically. The main portal vein and image hepatic veins are patent. There is a Phrygian gallbladder cap. The gallbladder is unremarkable in appearance. No pericholecystic fluid. No definite cholelithiasis. Sonographic Shi sign reported as positive. No intrahepatic or extrahepatic biliary duct dilatation. Common bile duct measures 5.89 m. A shadowing echogenic focus adjacent to the gallbladder fossa most likely related to air within the adjacent stomach or duodenum appear Right kidney measures 10.8 cm in length. Left kidney measures 9.7 cm in length. Kidneys demonstrate normal parenchymal thickness and echogenicity. There is no hydronephrosis or sonographically appreciable stone. Simple renal cysts noted bilaterally. Spleen unremarkable in size and appearance. Imaged portions of the aorta and IVC unremarkable in appearance. There is no ascites. Impression: Reported positive sonographic Shi sign. No gallbladder stones or sludge identified. No pericholecystic fluid. Gallbladder wall may be borderline thickened versus artifact. Findings are equivocal. Correlate clinically to assess for cholecystitis. HIDA scan may be obtained for further evaluation as clinically indicated.
--- NOTE | 2017-05-18 18:41 | Internal Med Progress Note ---
Subjective Date of Service: May 18, 2017 Physician Name Jone Cardenas Attending Physician Leonard Blanca MD Current Medications Medications (Trade) Dose Ordered Sig/Shanelle Route PRN Reason Start Time Stop Time Status Last Admin Dose Admin Acetaminophen (Tylenol) 650 mg Q4H PRN ORAL fever 05/17/17 17:00 06/16/17 16:59 Al Hydroxide/Mg Hydroxide (Mylanta II) 30 ml Q6H PRN ORAL dyspepsia 05/17/17 17:00 06/16/17 16:59 Dextrose (Dextrose 50%) STAT PRN IV Hypoglycemia 05/17/17 17:00 06/16/17 16:59 Dextrose/Sodium Chloride 1,000 ml @ 75 mls/hr [id number] IV 05/17/17 18:00 06/16/17 17:59 05/18/17 06:02 Diphenhydramine HCl (Benadryl) 25 mg Q6H PRN ORAL Itching/Pruritis 05/17/17 17:00 06/16/17 16:59 Heparin Sodium (Porcine) (Heparin 5000 units/ml) 5,000 units EVERY 12 HOURS SUBQ 05/17/17 21:00 06/16/17 20:59 05/18/17 08:40 Lorazepam (Ativan 2mg/ml 1ml) 1 mg Q4H PRN IV agitation 05/17/17 17:00 05/24/17 16:59 Metoclopramide HCl (Reglan) 5 mg TID ORAL 05/18/17 18:00 06/17/17 17:59 05/18/17 18:14 Morphine Sulfate (Morphine Sulfate) 2 mg Q4H PRN IVP severe Pain (Pain Scale 7-10) 05/17/17 17:00 05/24/17 16:59 05/18/17 16:20 Nitroglycerin (Ntg) 0.4 mg Q5M X 3 DOSES PRN SL Prn Chest Pain 05/17/17 17:00 06/16/17 16:59 Ondansetron HCl (Zofran) 4 mg Q6H PRN IVP Nausea & Vomiting 05/17/17 17:00 06/16/17 16:59 Pantoprazole (Protonix) 40 mg DAILY IV 05/18/17 09:00 06/17/17 08:59 05/18/17 08:34 Polyethylene Glycol (Miralax) 17 gm HSPRN PRN ORAL Constipation 05/17/17 17:00 06/16/17 16:59 Temazepam (Restoril) 15 mg HSPRN PRN ORAL Insomnia 05/17/17 17:00 05/24/17 16:59 05/17/17 21:11 Allergies: Coded Allergies: No Known Allergies (Unverified , 10/29/13) ROS Limited/Unobtainable: No Constitutional: Reports: no symptoms HEENT: Reports: no symptoms Cardiovascular: Reports: no symptoms Respiratory: Reports: no symptoms Gastrointestinal/Abdominal: Reports: abdominal pain, nausea, vomiting Neurologic/Psychiatric: Reports: no symptoms Subjective 37 YO F admitted with intractable nausea/vomiting and epigastric pain. Cover for Int Med-Dr Blanca. Await upper GI series and cardiology consult. Objective Last Vital Signs Date Time Temp Pulse Resp B/P (MAP) Pulse Ox O2 Delivery O2 Flow Rate FiO2 05/18/17 16:00 97.9 51 18 122/77 100 Room Air General Appearance: WD/WN, no apparent distress, alert EENT: PERRL/EOMI, normal ENT inspection Neck: non-tender, normal alignment, supple, normal inspection Cardiovascular: normal peripheral pulses, normal rate, regular rhythm, no gallop/murmur, no JVD Respiratory/Chest: chest wall non-tender, lungs clear, normal breath sounds, no respiratory distress, no accessory muscle use Abdomen: no organomegaly, no mass, decreased bowel sounds, guarding, tender Extremities: normal range of motion 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, no motor/sensory deficits Skin: normal pigmentation, warm/dry Laboratory Tests Test 05/18/17 05:35 White Blood Count 4.4 K/UL (4.8-10.8) L Red Blood Count 3.79 M/UL (4.20-5.40) L Hemoglobin 10.2 G/DL (12.0-16.0) L Hematocrit 31.0 % (37.0-47.0) L Mean Corpuscular Volume 82 FL (80-99) Mean Corpuscular Hemoglobin 26.9 PG (27.0-31.0) L Mean Corpuscular Hemoglobin Concent 32.9 G/DL (32.0-36.0) Red Cell Distribution Width 13.6 % (11.6-14.8) Platelet Count 284 K/UL (150-450) Mean Platelet Volume 6.7 FL (6.5-10.1) Neutrophils (%) (Auto) % (45.0-75.0) Lymphocytes (%) (Auto) % (20.0-45.0) Monocytes (%) (Auto) % (1.0-10.0) Eosinophils (%) (Auto) % (0.0-3.0) Basophils (%) (Auto) % (0.0-2.0) Differential Total Cells Counted 100 Neutrophils % (Manual) 30 % (45-75) L Lymphocytes % (Manual) 64 % (20-45) H Monocytes % (Manual) 4 % (1-10) Eosinophils % (Manual) 1 % (0-3) Basophils % (Manual) 1 % (0-2) Band Neutrophils 0 % (0-8) Platelet Estimate Adequate Platelet Morphology Normal Hypochromasia 1+ Anisocytosis 1+ Activated Partial Thromboplast Time 31 SEC (23-33) Sodium Level 141 MMOL/L (136-145) Potassium Level 3.7 MMOL/L (3.5-5.1) Chloride Level 106 MMOL/L (98-107) Carbon Dioxide Level 27 MMOL/L (21-32) Anion Gap 8 mmol/L (5-15) Blood Urea Nitrogen 8 mg/dL (7-18) Creatinine 1.2 MG/DL (0.55-1.30) Estimat Glomerular Filtration Rate > 60 mL/min (>60) Glucose Level 83 MG/DL (74-106) Calcium Level 8.6 MG/DL (8.5-10.1) Total Bilirubin 0.4 MG/DL (0.2-1.0) Aspartate Amino Transf (AST/SGOT) 15 U/L (15-37) Alanine Aminotransferase (ALT/SGPT) 18 U/L (12-78) Alkaline Phosphatase 53 U/L (46-116) Total Protein 6.6 G/DL (6.4-8.2) Albumin 3.0 G/DL (3.4-5.0) L Globulin 3.6 g/dL Albumin/Globulin Ratio 0.8 (1.0-2.7) L Amylase Level 64 U/L (25-115) Lipase 120 U/L (73-393) Intake and Output 1/11/18 1/12/18 19:00 07:00 Intake Total 1075 ml 750 ml Balance 1075 ml 750 ml IV Total 1075 ml 750 ml # Voids 1 3 Assessment/Plan Problem List: (1) Epigastric abdominal pain Assessment & Plan: See ultrasound result. Await HIDA. Await surgery consult. Lipase normal. (2) Nausea & vomiting Assessment & Plan: See GI note. Clear liquid diet. Await upper GI series (3) SVT (supraventricular tachycardia) (4) Jwseb-Kfnualupd-Oxqel (WPW) syndrome Assessment & Plan: Await cardiology consult. (5) HTN (hypertension) (6) CAD (coronary artery disease) (7) Pulmonary embolism Assessment & Plan: by history Status: not improved JONE CARDENAS May 18, 2017 18:41
[2017-05-18 20:00] VITALS: BP 124/75
[2017-05-19] VITALS: BP 126/76
[2017-05-19 07:25] LABS: BASOPHILS % (AUTO) 1.2 % (0.0-2.0); EOSINOPHILS % (AUTO) 1.3 % (0.0-3.0); HEMATOCRIT 33.4 % (37.0-47.0); HEMOGLOBIN 10.8 G/DL (12.0-16.0); LYMPHOCYTES % (AUTO) 49.2 % (20.0-45.0); MEAN CORPUSCULAR VOLUME 82 FL (80-99); MONOCYTES % (AUTO) 5.9 % (1.0-10.0); NEUTROPHILS % (AUTO) 42.4 % (45.0-75.0); PLATELET COUNT 342 K/UL (150-450); RED BLOOD COUNT 4.06 M/UL (4.20-5.40); RED CELL DISTRIBUTION WIDTH 13.3 % (11.6-14.8); WHITE BLOOD COUNT 3.8 K/UL (4.8-10.8)
[2017-05-19 08:00] VITALS: BP 134/78
[2017-05-19] MEDS: Pantoprazole Inj IV SCH (08:11)
[2017-05-19] MEDS: Morphine Sulfate 2mg/ml Inj IVP PRN (08:12)
[2017-05-19] MEDS: Heparin 5000 units/ml inj SUBQ SCH (08:12)
[2017-05-19 08:14] LABS: ANION GAP 9 mmol/L (5-15); BLOOD UREA NITROGEN 10 mg/dL (7-18); CARBON DIOXIDE 27 MMOL/L (21-32); CHLORIDE 106 MMOL/L (98-107); CREATININE 1.2 MG/DL (0.55-1.30); FERRITIN 9 NG/ML (8-388); POTASSIUM 4.1 MMOL/L (3.5-5.1); SODIUM 141 MMOL/L (136-145)
[2017-05-19 08:27] LABS: % IRON SATURATION 10 % (15-50); IRON 30 ug/dL (50-175); TOTAL IRON BINDING CAPACITY 302 ug/dL (250-450)
[2017-05-19] MEDS: D5 1/2NS 1,000 ML IV SCH (10:00)
--- NOTE | 2017-05-19 10:55 | Pulmonology Progress Note ---
Assessment/Plan Problems: (1) Epigastric abdominal pain (2) Nausea & vomiting (3) Toocc-Dpdvrpwil-Yiwyl (WPW) syndrome (4) HTN (hypertension) (5) Pulmonary embolism (6) SVT (supraventricular tachycardia) Assessment/Plan imrpovng symptomatic treatment d/w surgeon pt can go home wht outpatient f/u Subjective ROS Limited/Unobtainable: No Constitutional: Reports: no symptoms HEENT: Repors: no symptoms Respiratory: Reports: no symptoms Allergies: Coded Allergies: No Known Allergies (Unverified , 10/29/13) Objective Last 24 Hour Vital Signs Date Time Temp Pulse Resp B/P (MAP) Pulse Ox O2 Delivery O2 Flow Rate FiO2 05/19/17 08:42 97.5 05/19/17 08:00 97.5 63 18 134/78 97 Room Air 05/19/17 00:00 98.0 58 18 126/76 100 Room Air 05/18/17 20:00 97.6 60 18 124/75 100 Room Air 05/18/17 16:00 97.9 51 18 122/77 100 Room Air 05/18/17 12:00 98.1 47 18 131/73 100 Room Air Intake and Output 05/18/17 05/19/17 19:00 07:00 Intake Total 315 ml 1100 ml Balance 315 ml 1100 ml Intake Oral 240 ml 350 ml IV Total 75 ml 750 ml # Voids 3 # Bowel Movements 2 General Appearance: WD/WN HEENT: normocephalic, atraumatic Respiratory/Chest: chest wall non-tender, normal breath sounds Breasts: no masses Cardiovascular: normal peripheral pulses Abdomen: normal bowel sounds, no organomegaly Genitourinary: normal external genitalia Extremities: no cyanosis Skin: no ulcers Neurologic/Psychiatric: no motor/sensory deficits Lymphatic: no neck adenopathy Musculoskeletal: normal muscle bulk Microbiology Date/Time Source Procedure Growth Status 05/18/17 21:00 Stool Clostridium difficile Toxin Assay - Final Complete Laboratory Tests 05/18/17 21:00: Urine Opiates Screen [Pending], Urine Barbiturates Screen [Pending], Phencyclidine (PCP) Screen [Pending], Urine Amphetamines Screen [Pending], Urine Benzodiazepines Screen [Pending], Urine Cocaine Screen [Pending], Urine Marijuana (THC) Screen [Pending] 05/19/17 04:00: Stool Occult Blood [Pending] 05/19/17 05:10: White Blood Count 3.8L, Red Blood Count 4.06L, Hemoglobin 10.8L, Hematocrit 33.4L, Mean Corpuscular Volume 82, Mean Corpuscular Hemoglobin 26.6L, Mean Corpuscular Hemoglobin Concent 32.3, Red Cell Distribution Width 13.3, Platelet Count 342, Mean Platelet Volume 6.2L, Neutrophils (%) (Auto) 42.4L, Lymphocytes (%) (Auto) 49.2H, Monocytes (%) (Auto) 5.9, Eosinophils (%) (Auto) 1.3, Basophils (%) (Auto) 1.2, Reticulocyte Count [Pending], Prothrombin Time 10.8, Prothromb Time International Ratio 1.0, Activated Partial Thromboplast Time 31, Sodium Level 141, Potassium Level 4.1, Chloride Level 106, Carbon Dioxide Level 27, Anion Gap 9, Blood Urea Nitrogen 10, Creatinine 1.2, Estimat Glomerular Filtration Rate > 60, Glucose Level 80, Calcium Level 9.0, Iron Level 30L, Total Iron Binding Capacity 302, Percent Iron Saturation 10L, Unsaturated Iron Binding 272, Ferritin 9, Vitamin B12 Level 657, Folate 16.5, Thyroid Stimulating Hormone (TSH) 1.987, Free Thyroxine 1.25 Current Medications Medications (Trade) Dose Ordered Sig/Shanelle Route PRN Reason Start Time Stop Time Status Last Admin Dose Admin Acetaminophen (Tylenol) 650 mg Q4H PRN ORAL fever 05/17/17 17:00 06/16/17 16:59 Al Hydroxide/Mg Hydroxide (Mylanta II) 30 ml Q6H PRN ORAL dyspepsia 05/17/17 17:00 06/16/17 16:59 Dextrose (Dextrose 50%) STAT PRN IV Hypoglycemia 05/17/17 17:00 06/16/17 16:59 Dextrose/Sodium Chloride 1,000 ml @ 75 mls/hr [id number] IV 05/17/17 18:00 06/16/17 17:59 05/18/17 20:40 Diphenhydramine HCl (Benadryl) 25 mg Q6H PRN ORAL Itching/Pruritis 05/17/17 17:00 06/16/17 16:59 Heparin Sodium (Porcine) (Heparin 5000 units/ml) 5,000 units EVERY 12 HOURS SUBQ 05/17/17 21:00 06/16/17 20:59 05/19/17 08:12 Lorazepam (Ativan 2mg/ml 1ml) 1 mg Q4H PRN IV agitation 05/17/17 17:00 05/24/17 16:59 Metoclopramide HCl (Reglan) 5 mg TID ORAL 05/18/17 18:00 06/17/17 17:59 05/19/17 08:10 Morphine Sulfate (Morphine Sulfate) 2 mg Q4H PRN IVP severe Pain (Pain Scale 7-10) 05/17/17 17:00 05/24/17 16:59 05/19/17 08:12 Nitroglycerin (Ntg) 0.4 mg Q5M X 3 DOSES PRN SL Prn Chest Pain 05/17/17 17:00 06/16/17 16:59 Ondansetron HCl (Zofran) 4 mg Q6H PRN IVP Nausea & Vomiting 05/17/17 17:00 06/16/17 16:59 Pantoprazole (Protonix) 40 mg DAILY IV 05/18/17 09:00 06/17/17 08:59 05/19/17 08:11 Polyethylene Glycol (Miralax) 17 gm HSPRN PRN ORAL Constipation 05/17/17 17:00 06/16/17 16:59 Temazepam (Restoril) 15 mg HSPRN PRN ORAL Insomnia 05/17/17 17:00 05/24/17 16:59 05/18/17 21:49 LARY REYNA May 19, 2017 10:55
--- NOTE | 2017-05-19 11:29 | Diagnostic Imaging Report ---
Indication: Vomiting Technique: Upper GI series. Fluoroscopic and radiographic images obtained. Comparison: Elevation made to concurrent abdominal ultrasound and CT of the abdomen and pelvis 11/12/2015. Findings: Core Feeder image of the chest demonstrates no evidence of acute cardiopulmonary disease. No focal airspace consolidation seen. Fluoroscopic images demonstrated normal swallowing. No esophageal abnormality was appreciated (unfortunately fluoroscopic images cannot be archived to PACS). Subsequently radiographic images demonstrate unremarkable appearance of the stomach. There is passage of contrast from the stomach into the small bowel. There is no evidence of intestinal malrotation McConn the ligament of Treitz is located to the left midline. Delayed films taken at 10 and 20 minutes post ingestion of Gastrografin show emptying of contrast into the small, opacifying multiple nondilated small bowel loops. Some mild residual contrast noted within the stomach. No reflux was seen throughout the entire exam. Impression: Overall unremarkable single contrast upper GI series. No evidence of gastroesophageal reflux. No evidence of intestinal malrotation. Contrast was noted to promptly enter the duodenum. Delayed films demonstrate appropriate passage of contrast to fill multiple non-dilated small bowel loops. Please note that there is limited sensitivity for mucosal irregularities (inflammation or ulcers). These would be better evaluated on endoscopy, which is recommended as clinically indicated for further evaluation.
[2017-05-19 11:41] VITALS: BP 130/83
[2017-05-19] MEDS ORDERED: D5 1/2NS 1000ml IV ONE (11:47)
--- NOTE | 2017-05-19 12:27 | Consultation ---
History of Present Illness General Date patient seen: May 19, 2017 Time patient seen: 10:00 Chief Complaint: Abdominal Pain Referring physician: Kati Elizabeth Reason for Consultation: abdominal pain Present Illness HPI 37F with 9 month history of abdominal discomfort presented with worsening abdominal pain, nausea and emesis. states pain mainly in RUQ but overall generalized abdominal cramping described as baseline 6/10 discomfort which at times becomes worse. sometimes develops intermittent nausea and non bloody emesis. most recent episode yesterday and came to ED for evaluation. Has been having this from over 9 months as per patient. she has been seeing her pcp and has recently had GI referral but has not seen outpatient GI yet. reviewed records and has had extensive work up with prior visits including CT scan and ultrasound. currently states she feels better compared to when admitted. no n/ v/f/c/. tolerating diet. ambulatory. cramping baseline pain. intermittent diarrhea which she has had for some time now. history of cardiac SVT s/p ablation. otherwise well. Allergies: Coded Allergies: No Known Allergies (Unverified , 10/29/13) Medication History Scheduled Amitriptyline HCl (Elavil*), 50 MG ORAL BEDTIME, (Reported) Atorvastatin Calcium* (Atorvastatin Calcium*), 40 MG ORAL BEDTIME, (Reported) Cyclobenzaprine Hcl* (Flexeril*), 5 MG ORAL THREE TIMES A DAY, (Reported) Diltiazem HCl (Diltiazem 24Hr Cd), 240 MG ORAL DAILY Gabapentin* (Gabapentin*), 600 MG ORAL THREE TIMES A DAY, (Reported) Ibuprofen (Ibuprofen*), 600 MG ORAL THREE TIMES A DAY, (Reported) Metoprolol Succinate* (Metoprolol Succinate*), 25 MG ORAL DAILY, (Reported) No Known Medications* (NKM - No Known Medications*), 0 ., (Reported) Omeprazole (Omeprazole), 20 MG ORAL DAILY, (Reported) Omeprazole (Omeprazole), 20 MG ORAL DAILY, (Reported) Ranitidine Hcl* (Zantac*), 150 MG ORAL TWICE A DAY Rivaroxaban (Xarelto*), 15 MG ORAL DAILY, (Reported) Trazodone Hcl* (Desyrel*), 100 MG ORAL BEDTIME, (Reported) Warfarin Sod* (Warfarin Sod*), 10 MG ORAL DAILY Scheduled PRN Hydrocodone Bit/Acetaminophen 10-325* ([place] 10-325*), 1 TAB ORAL Q4H PRN for For Pain, (Reported) Ibuprofen* (Motrin*), 600 MG ORAL Q8H PRN for For Pain Ibuprofen* (Motrin*), 800 MG ORAL Q8H PRN for For Pain, (Reported) Ondansetron Odt* (Zofran Odt*), 4 MG ORAL Q6H PRN for Nausea & Vomiting Tramadol Hcl* (Ultram*), 50 MG ORAL Q6H PRN for For Pain Miscellaneous Medications Ibuprofen (Ibuprofen*), 200 MG ORAL, (Reported) Patient History History Provided By: Patient, Medical Record Healthcare decision maker Resuscitation status Full Code Advanced Directive on File No Past Medical/Surgical History Past Medical/Surgical History: (1) Rash and nonspecific skin eruption (2) Hand pain, right (3) Chest pain, unspecified (4) Migraine (5) Chest pain, unspecified (6) Persistent cough (7) Pulmonary embolus and infarction (8) Gastroenteritis (9) GERD (gastroesophageal reflux disease) (10) Vomiting (11) CAD (coronary artery disease) (12) SVT (supraventricular tachycardia) (13) Epigastric abdominal pain (14) Pulmonary embolism (15) HTN (hypertension) (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 (17) Nausea & vomiting Review of Systems Constitutional: Denies: no symptoms, see HPI, chills, sweats, fever, malaise, weakness, other Eye: Denies: no symptoms, see HPI, eye pain, blurred vision, tearing, double vision, nose pain, nose congestion, acuity changes, discharge, other ENT: Denies: no symptoms, see HPI, ear pain, ear discharge, nose pain, nose congestion, throat pain, throat swelling, mouth pain, hearing loss, nasal discharge, other Respiratory: Denies: no symptoms, see HPI, cough, orthopnea, shortness of breath, stridor, wheezing, METZGER, sputum, other Cardiovascular: Denies: no symptoms, see HPI, chest pain, edema, palpitations, syncope, PND, other Gastrointestinal: Reports: abdominal pain, nausea, vomiting Genitourinary: Denies: no symptoms, see HPI, discharge, dysuria, frequency, hematuria, pain, retention, incontinence, urgency, vag bleed/dc, other Musculoskeletal: Denies: no symptoms, see HPI, back pain, gout, joint pain, joint swelling, muscle pain, muscle stiffness, other Skin: Denies: no symptoms, see HPI, rash, change in color, change in hair/nails , dryness, lesions, other Psychiatric: Denies: no symptoms, see HPI, prior hx, anxiety, depressed feelings, emotional problems, SI, HI, hallucinations, other Neurological: Denies: no symptoms, see HPI, headache, numbness, paresthesia, seizure, tingling, tremors, focal weakness, syncope, dizziness, other Endocrine: Denies: no symptoms, see HPI, excessive sweating, flushing, intolerance to temperature, increased thirst, increased urine, unexplained weight loss, other Hematologic/Lymphatic: Denies: no symptoms, see HPI, anemia, blood clots, easy bleeding, easy bruising, swollen glands, diathesis, other Physical Exam General Appearance: WD/WN, no apparent distress, alert Lines, tubes and drains: peripheral HEENT: normocephalic, atraumatic, mucous membranes moist, PERRL Neck: normal alignment, supple, normal inspection Respiratory/Chest: lungs clear, normal breath sounds, no respiratory distress, no accessory muscle use Cardiovascular/Chest: normal peripheral pulses, normal rate, regular rhythm Abdomen: normal bowel sounds, soft, no organomegaly, no mass, tender, other - soft, non distended, tender in all quadrants but more so on right side but no rebound, no guarding, no peritoneal signs. tendneress more of a discomfort and visceral discomfort. Extremities: normal range of motion, non-tender Skin Exam: normal pigmentation, warm/dry Neurologic: alert, oriented x 3, responsive Last 24 Hour Vital Signs Date Time Temp Pulse Resp B/P (MAP) Pulse Ox O2 Delivery O2 Flow Rate FiO2 05/19/17 11:41 97.5 56 18 130/83 100 Room Air 05/19/17 08:42 97.5 05/19/17 08:00 97.5 63 18 134/78 97 Room Air 05/19/17 00:00 98.0 58 18 126/76 100 Room Air 05/18/17 20:00 97.6 60 18 124/75 100 Room Air 05/18/17 16:00 97.9 51 18 122/77 100 Room Air Intake and Output 05/18/17 05/19/17 19:00 07:00 Intake Total 315 ml 1100 ml Balance 315 ml 1100 ml Intake Oral 240 ml 350 ml IV Total 75 ml 750 ml # Voids 3 # Bowel Movements 2 Laboratory Tests Test 05/18/17 21:00 05/19/17 04:00 05/19/17 05:10 Urine Opiates Screen Pending Urine Barbiturates Screen Pending Phencyclidine (PCP) Screen Pending Urine Amphetamines Screen Pending Urine Benzodiazepines Screen Pending Urine Cocaine Screen Pending Urine Marijuana (THC) Screen Pending Stool Occult Blood Negative (NEGATIVE) White Blood Count 3.8 K/UL (4.8-10.8) L Red Blood Count 4.06 M/UL (4.20-5.40) L Hemoglobin 10.8 G/DL (12.0-16.0) L Hematocrit 33.4 % (37.0-47.0) L Mean Corpuscular Volume 82 FL (80-99) Mean Corpuscular Hemoglobin 26.6 PG (27.0-31.0) L Mean Corpuscular Hemoglobin Concent 32.3 G/DL (32.0-36.0) Red Cell Distribution Width 13.3 % (11.6-14.8) Platelet Count 342 K/UL (150-450) Mean Platelet Volume 6.2 FL (6.5-10.1) L Neutrophils (%) (Auto) 42.4 % (45.0-75.0) L Lymphocytes (%) (Auto) 49.2 % (20.0-45.0) H Monocytes (%) (Auto) 5.9 % (1.0-10.0) Eosinophils (%) (Auto) 1.3 % (0.0-3.0) Basophils (%) (Auto) 1.2 % (0.0-2.0) Reticulocyte Count 0.8 % (0.0-2.0) Prothrombin Time 10.8 SEC (9.30-11.50) Prothromb Time International Ratio 1.0 (0.9-1.1) Activated Partial Thromboplast Time 31 SEC (23-33) Sodium Level 141 MMOL/L (136-145) Potassium Level 4.1 MMOL/L (3.5-5.1) Chloride Level 106 MMOL/L (98-107) Carbon Dioxide Level 27 MMOL/L (21-32) Anion Gap 9 mmol/L (5-15) Blood Urea Nitrogen 10 mg/dL (7-18) Creatinine 1.2 MG/DL (0.55-1.30) Estimat Glomerular Filtration Rate > 60 mL/min (>60) Glucose Level 80 MG/DL (74-106) Calcium Level 9.0 MG/DL (8.5-10.1) Iron Level 30 ug/dL (50-175) L Total Iron Binding Capacity 302 ug/dL (250-450) Percent Iron Saturation 10 % (15-50) L Unsaturated Iron Binding 272 ug/dL (112-346) Ferritin 9 NG/ML (8-388) Vitamin B12 Level 657 PG/ML (193-986) Folate 16.5 NG/ML (8.6-58.9) Thyroid Stimulating Hormone (TSH) 1.987 uiU/mL (0.358-3.740) Free Thyroxine 1.25 NG/DL (0.76-1.46) Microbiology Date/Time Source Procedure Growth Status 05/18/17 21:00 Stool Clostridium difficile Toxin Assay - Final Complete Height (Feet): 5 Height (Inches): 5.00 Weight (Pounds): 210 Assessment/Plan Problem List: (1) Chronic abdominal pain Assessment & Plan: 37F with chronic >9 months abdominal pain with intermittent episodes of acute worsening requiring ED visit. labs normal. exam benign except for discomfort seemingly visceral in nature without rebound, guarding, or peritonitis. prior CT reviewed and okay. ultrasound reviewed and okay. unlikely biliary given quality and distribution of pain. from history, exam, symptoms seems as if patient may have IBS with diarrhea type. -okay to d/c from surgical standpoint -outpatient GI follow up as scheduled. potentially has IBS with diarrhea type. thank you for this consultation. ICD Codes: R10.9 - Unspecified abdominal pain; G89.29 - Other chronic pain SNOMED: [id number] Status: stable Jacinto Rahman May 19, 2017 12:27
--- NOTE | 2017-05-21 18:12 | Emergency Room Report ---
History of Present Illness General Chief Complaint: Abdominal Pain Source: Patient, Medical Record Present Illness HPI This patient presents with 3 days of intractable vomiting and epigastric pain. The patient states she has been unable to keep down water or or liquids. She states that she has these symptoms recurrently and underwent ultrasound of her abdomen and other tests and told she has acid reflux. She states that the symptoms keep recurring and she is unable to get a referral to a band scroll saw operator. She denies f/c/s, cp, sob, epnaloza, neck pain or other sx. Allergies: Coded Allergies: No Known Allergies (Unverified , 10/29/13) Patient History Past Medical History: see triage record, psych hx, other - PE Social History: Denies: smoking, alcohol use, drug use Last Menstrual Period: on period Now: No Reviewed Nursing Documentation: PMH: Agreed, PSxH: Agreed Nursing Documentation-PMH Past Medical History: No History, Except For Hx Cardiac Problems: Yes - SVT per pt Hx Hypertension: Yes - PE Hx Pacemaker: No Hx Asthma: No Hx COPD: No Hx Diabetes: No Hx Cancer: No Hx Gastrointestinal Problems: Yes Hx Dialysis: No Hx Neurological Problems: Yes Hx Cerebrovascular Accident: No Hx Seizures: No Hx Headaches: Yes - on/off Hx Neurologic Surgery: No Hx Brain Shunt: No Review of Systems All Other Systems: negative except mentioned in HPI Physical Exam Vital Signs Date Time Temp Pulse Resp B/P (MAP) Pulse Ox O2 Delivery O2 Flow Rate FiO2 05/17/17 09:39 98.1 73 14 136/71 98 Room Air Sp02 EP Interpretation: reviewed, normal General Appearance: no apparent distress, alert, GCS 15, non-toxic Head: normocephalic, atraumatic Eyes: bilateral eye normal inspection, bilateral eye PERRL ENT: hearing grossly normal, normal pharynx, no angioedema, normal voice Neck: full range of motion, supple/symm/no masses Respiratory: chest non-tender, lungs clear, normal breath sounds, speaking full sentences Cardiovascular #1: regular rate, rhythm, no edema Gastrointestinal: normal bowel sounds, soft, non-distended, no guarding, no rebound, tenderness - epigastrium Rectal: deferred Musculoskeletal: back normal, gait/station normal, normal range of motion, non- tender Neurologic: alert, oriented x3, responsive, motor strength/tone normal, sensory intact, speech normal Psychiatric: judgement/insight normal, memory normal, mood/affect normal, no suicidal/homicidal ideation Skin: normal color, no rash, warm/dry, well hydrated Medical Decision Making Diagnostic Impression: Primary Impression: Gastroenteritis Additional Impression: Intractable vomiting ER Course I suspect this patient has GERD/PUD. She is admitted for intractable vomiting and further monitoring and evaluation by GI. Laboratory w/u to include CBC, CMP , lipase, UA are non-contributory. The pt recently had a RUQ US that was unremarkable. No e/o of pancreatitis, cholelithiasis, cholecystitis. Labs Test 05/19/17 04:00 05/19/17 05:10 Stool Occult Blood Negative (NEGATIVE) White Blood Count 3.8 K/UL (4.8-10.8) Red Blood Count 4.06 M/UL (4.20-5.40) Hemoglobin 10.8 G/DL (12.0-16.0) Hematocrit 33.4 % (37.0-47.0) Mean Corpuscular Volume 82 FL (80-99) Mean Corpuscular Hemoglobin 26.6 PG (27.0-31.0) Mean Corpuscular Hemoglobin Concent 32.3 G/DL (32.0-36.0) Red Cell Distribution Width 13.3 % (11.6-14.8) Platelet Count 342 K/UL (150-450) Mean Platelet Volume 6.2 FL (6.5-10.1) Neutrophils (%) (Auto) 42.4 % (45.0-75.0) Lymphocytes (%) (Auto) 49.2 % (20.0-45.0) Monocytes (%) (Auto) 5.9 % (1.0-10.0) Eosinophils (%) (Auto) 1.3 % (0.0-3.0) Basophils (%) (Auto) 1.2 % (0.0-2.0) Reticulocyte Count 0.8 % (0.0-2.0) Prothrombin Time 10.8 SEC (9.30-11.50) Prothromb Time International Ratio 1.0 (0.9-1.1) Activated Partial Thromboplast Time 31 SEC (23-33) Sodium Level 141 MMOL/L (136-145) Potassium Level 4.1 MMOL/L (3.5-5.1) Chloride Level 106 MMOL/L (98-107) Carbon Dioxide Level 27 MMOL/L (21-32) Anion Gap 9 mmol/L (5-15) Blood Urea Nitrogen 10 mg/dL (7-18) Creatinine 1.2 MG/DL (0.55-1.30) Estimat Glomerular Filtration Rate > 60 mL/min (>60) Glucose Level 80 MG/DL (74-106) Calcium Level 9.0 MG/DL (8.5-10.1) Iron Level 30 ug/dL (50-175) Total Iron Binding Capacity 302 ug/dL (250-450) Percent Iron Saturation 10 % (15-50) Unsaturated Iron Binding 272 ug/dL (112-346) Ferritin 9 NG/ML (8-388) Vitamin B12 Level 657 PG/ML (193-986) Folate 16.5 NG/ML (8.6-58.9) Thyroid Stimulating Hormone (TSH) 1.987 uiU/mL (0.358-3.740) Free Thyroxine 1.25 NG/DL (0.76-1.46) Last Vital Signs Date Time Temp Pulse Resp B/P (MAP) Pulse Ox O2 Delivery O2 Flow Rate FiO2 05/19/17 11:41 97.5 56 18 130/83 100 Room Air Disposition: ADMITTED INPATIENT Condition: Stable Referrals: Ev RIVERAREFERRING (PCP) Patient Instructions: Irritable Bowel Syndrome, Adult, Probiotics USHA FONTANA D.O. May 21, 2017 18:12
--- NOTE | 2017-05-22 12:15 | Discharge Summary 2 SIG ---
DATE OF ADMISSION: 05/17/2017 DATE OF DISCHARGE: 05/19/2017 REASON FOR ADMISSION: 37-year-old female with multiple comorbidities including Shan-Parkinson White syndrome, status post ablation, history of supraventricular tachycardia, history of coronary artery disease, history of PE, presented to emergency room with complaining of intractable nausea, vomiting, and abdominal pain. The patient initially presented to [facility] emergency room and after evaluation was transferred to [facility] due to insurance purposes for further management. The patient was diagnosed with: epigastric pain, nausea, and vomiting; supraventricular tachycardia; Msatd-Geylegbfs-Ybxmi syndrome, status post ablation; hypertension; history of coronary artery disease. HOSPITAL COURSE: The patient was admitted. GI evaluation was requested. The patient initially kept NPO, then started on clear liquids diet. Symptomatic treatment provided. Antiemetic provided as needed. Upper gastrointestinal series were done to rule out dysmotility, and they were negative. The patient was started on low dose of Reglan around the clock. Diet was slowly advanced. Anemia workup was noted. Hemoglobin and hematocrit were closely monitored. No need for transfusion, hemoglobin and hematocrit remained on the baseline. Bowel regimen instituted. The patient was on PPI. Stool for OB was negative. Surgery had seen the patient. Per Surgery, the patient had benign exam except for discomfort seemingly visceral in nature without rebound, guarding or peritonitis. Surgeon reviewed prior CT and ultrasound, unlikely biliary cause given quality and distribution of pain from history, exam and symptoms. Per surgeon, more likely the patient had IBS with diarrhea type. According to surgeon, the patient had a chronic, more than 9 months, abdominal pain with intermittent episodes of acute worsening, requiring ED visit. Surgeon cleared patient for discharge. He recommended outpatient gastrointestinal follow-up . Potentially, the patient may have IBS with diarrhea type. The patient was able to tolerate diet. Nausea resolved. Xarelto was continued for PE. Blood pressure was managed with calcium channel zoya, beta-zoya and remained stable. The patient was cleared for discharge. FINAL DIAGNOSES: 1. Epigastric abdominal pain. 2. Intermittent nausea and vomiting 3. Possible IBS with diarrhea type. 4. Rnggm-Nqmxcajfl-Okeua syndrome. 5. Hypertension. 6. Pulmonary embolism. 7. Supraventricular tachycardia. 8. Coronary artery disease. DISCHARGE INSTRUCTIONS: The patient was discharged home. Follow up with primary medical doctor and GI as advised. DISCHARGE MEDICATIONS: See medication reconciliation list. Leonard Blanca M.D. I have been assigned to dictate discharge summary on this account and I was not involved in the patient's management. Birgit Conklin N.P. (Vanchtein) DR: NELLY JOB#: [id number] CC: JENI
== END 2017-05-19 11:48 | disposition home or self-care (01) | DRG 392 ==
LOC: EMR 10:45 → 4E 15:00 → EDBEDREQ 16:29
DX: R10.13 Epigastric pain (principal); I47.1 Supraventricular tachycardia; I10 Essential (primary) hypertension; R11.2 Nausea with vomiting, unspecified; I45.6 Pre-excitation syndrome; Z86.711 Personal history of pulmonary embolism; I25.10 Atherosclerotic heart disease of native coronary artery without angina pectoris
CPT/HCPCS: 36415; 74247; 76700; 80048; 80053; 81003; 81025; 82150; 82270; 82607; 82728; 82746; 83540; 83550; 83690; 84439; 84443; 85007; 85025; 85044; 85610; 85730; 87324; 99285; J2405

== ENCOUNTER 2017-07-13 06:29 | Emergency (ER) | payer OTHER ==
[~2017-07-13] VITALS: Ht 165.1 cm; Wt 97.1 kg
[2017-07-13 06:39] VITALS: BP 112/62
[2017-07-13] MEDS ORDERED: AMOXICILLIN500 MG ORAL (06:50)
[2017-07-13] MEDS ORDERED: CORTISPORIN EAR10 ML OTIC (06:50)
[2017-07-13 06:55] VITALS: BP 112/62
--- NOTE | 2017-07-13 06:58 | Emergency Room Report ---
History of Present Illness General Chief Complaint: Earache Source: Patient Present Illness HPI Patient presents with complaints of left-sided ear pain ongoing for the past 2- 3 days pain has been worsening patient put some ceyn-uzb-wyqvlpd medicine however is not helping Describes the pain as 5 out of 10 Denies any chest pain or shortness of breath patient has been outside in the rain Denies any other contact with swimming pool or hot tub Denies any pain with swallowing or change in speech Allergies: Coded Allergies: ASPIRIN (Verified Allergy, Unknown, 07/13/17) Patient History Past Medical History: see triage record Pertinent Family History: none Last Menstrual Period: last week Now: No : 0 Para: 0 Reviewed Nursing Documentation: PMH: Agreed, PSxH: Agreed Nursing Documentation-PMH Hx Cardiac Problems: Yes - SVT per pt Hx Hypertension: Yes - PE Hx Pacemaker: No Hx Asthma: No Hx COPD: No Hx Diabetes: No Hx Cancer: No Hx Gastrointestinal Problems: Yes Hx Dialysis: No Hx Neurological Problems: Yes Hx Cerebrovascular Accident: No Hx Seizures: No Hx Headaches: Yes - on/off Hx Neurologic Surgery: No Hx Brain Shunt: No Review of Systems All Other Systems: negative except mentioned in HPI Physical Exam Vital Signs Date Time Temp Pulse Resp B/P (MAP) Pulse Ox O2 Delivery O2 Flow Rate FiO2 07/13/17 06:31 98.2 78 18 112/62 99 Room Air 98.2 Sp02 EP Interpretation: reviewed, normal General Appearance: well appearing, no apparent distress Head: normocephalic, atraumatic Eyes: bilateral eye PERRL, bilateral eye EOMI ENT: hearing grossly normal, normal pharynx, uvula midline, other - Left tympanic membrane is edematous however still patent painful with movement of the ear lobe tympanic membrane is also bulging and erythematous, Neck: full range of motion, supple, no meningismus, no bony tend Respiratory: lungs clear, normal breath sounds, no rhonchi, no respiratory distress, no retraction, no accessory muscle use Cardiovascular #1: normal peripheral pulses, regular rate, rhythm, no edema, no gallop, no JVD, no murmur Gastrointestinal: normal bowel sounds, non tender, soft, no mass, no organomegaly, non-distended, no guarding, no hernia, no pulsatile mass, no rebound Musculoskeletal: normal inspection Neurologic: oriented x3, responsive, teacher vocational training III-XII nml as tested, motor strength/ tone normal, sensory intact Psychiatric: mood/affect normal Skin: normal color, no rash, warm/dry, palpation normal Lymphatic: normal inspection, no adenopathy Medical Decision Making Diagnostic Impression: Primary Impression: otitis media Additional Impression: otitis externa ER Course Patient's clinical findings are in line with what appears to be otitis externa and otitis media patient placed on medications appropriately I did discuss regarding pain medication patient has been given Tylenol with codeine recently by another provider patient states that she does not want any pain medicine at this time And will have close follow-up she has had difficulty obtaining follow-up as 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 07/13/17 Amoxicillin* (AMOXIL*) 500 Mg Capsule 500 MG ORAL THREE TIMES A DAY, #21 CAP Prov: SUJIT PHOENIX D.O. 07/13/17 Patient Instructions: Otitis Externa, Mzxk-[id number], Otitis Media, Adult Additional Instructions: Patient is provided with the discharge instructions notified to follow up with primary doctor in the next 2-3 days otherwise return to the er with any worsening symptoms. Please note that this report is being documented using [employer] technology. This can lead to erroneous entry secondary to incorrect interpretation by the dictating instrument. SUJIT PHOENIX D.O. Jul 13, 2017 06:58
== END 2017-07-13 06:56 | disposition home or self-care (01) ==
LOC: EMR 06:43
DX: H66.92 Otitis media, unspecified, left ear (principal); H60.92 Unspecified otitis externa, left ear; Z88.6 Allergy status to analgesic agent
CPT/HCPCS: 99284

== ENCOUNTER 2019-06-28 18:22 | Emergency (ER) | payer OTHER ==
[~2019-06-28] VITALS: Ht 165.1 cm; Wt 68.0 kg
[~2019-06-28 18:22] MED LIST changes: +AMOXICILLIN500 MG ORAL; +CORTISPORIN EAR10 ML OTIC
--- NOTE | 2019-06-28 18:40 | NUR ---
ED Nurse Note: patient wheeled into ED from home by her , per patient and , she was jumping over a fence gate to get into her house without a manrique and sustained a big/deep laceration on her right inner thigh on the sharp spike on the gate. patient is alert awake x4 breathing unlabored and even, speaking in full sentences.
--- NOTE | 2019-06-28 18:41 | NUR ---
ED Nurse Note: bleeding is controlled at this time. patient provided with a hospital gown. patient in a private room. at bedside.
[2019-06-28] MEDS ORDERED: Tetanus/Diptheria/Pertussis IM ONE (18:45)
[2019-06-28] MEDS ORDERED: Morphine Sulfate 2mg/ml Inj(IV/IM USE ONLY) IM ONE (18:45)
--- NOTE | 2019-06-28 19:28 | NUR ---
HAND-OFF: Report given to VIDHI BARR .
[2019-06-28] MEDS ORDERED: Ketorolac 30mg Inj IM ONE (19:45)
--- NOTE | 2019-06-28 19:58 | Emergency Room Report ---
History of Present Illness General Chief Complaint: Laceration Source: Patient (Leonides De La Cruz) Present Illness HPI 39-year-old female with history of chronic low back pain here with significant other due to a laceration. Patient reports that she was climbing up a fence and she fell and people went inside her right thigh and she pulled it out. Patient appears to have a very deep laceration and a square shaped with an obvious hole. Tendon involvement suspected. Patient has no nerve involvement. Denies any tingling numbness. Tenderness and pain. Has not taken medication for symptom relief. Not up-to-date with tetanus shot. Denies all other injuries. Is on no blood thinners. Is sitting comfortably with stable vital signs. No neurovascular deficits noted (Leonides De La Cruz) Allergies: Coded Allergies: ASPIRIN (Verified Allergy, Unknown, 07/13/17) Patient History Past Medical History: see triage record Past Surgical History: none Pertinent Family History: none Now: No Immunizations: other - Tdap given today Reviewed Nursing Documentation: PMH: Agreed; PSxH: Agreed (Leonides De La Cruz) Nursing Documentation-PMH Hx Cardiac Problems: Yes - SVT per pt Hx Hypertension: Yes - PE Hx Pacemaker: No Hx Asthma: No Hx COPD: No Hx Diabetes: No Hx Cancer: No Hx Gastrointestinal Problems: Yes Hx Dialysis: No Hx Neurological Problems: Yes Hx Cerebrovascular Accident: No Hx Seizures: No Hx Headaches: Yes - on/off Hx Neurologic Surgery: No Hx Brain Shunt: No (Leonides De La Cruz) Review of Systems All Other Systems: negative except mentioned in HPI (Leonides De La Cruz) Physical Exam Vital Signs Date Time Temp Pulse Resp B/P (MAP) Pulse Ox O2 Delivery O2 Flow Rate FiO2 06/28/19 18:34 98.2 110 26 117/64 (81) 98 Room Air Sp02 EP Interpretation: reviewed, normal General Appearance: alert, GCS 15, non-toxic, moderate distress Head: normocephalic, atraumatic Eyes: bilateral eye normal inspection, bilateral eye PERRL ENT: hearing grossly normal, normal pharynx, no angioedema, normal voice Neck: full range of motion, supple, supple/symm/no masses Respiratory: chest non-tender, lungs clear, normal breath sounds, no rhonchi, no wheezing, speaking full sentences Cardiovascular #1: regular rate, rhythm, no edema, no murmur Cardiovascular #2: 2+ femoral (R), 2+ femoral (L), 2+ dorsalis pedis (R), 2+ dorsalis pedis (L) Gastrointestinal: normal bowel sounds, non tender, soft, non-distended, no guarding, no rebound Genitourinary: no CVA tenderness Musculoskeletal: back normal Neurologic: alert, motor strength/tone normal, oriented x3, sensory intact, responsive, speech normal Skin: laceration - deep, into tendon right thigh Lymphatic: no adenopathy (Leonides De La Cruz) Procedures Laceration/Wound Repair Laceration/Wound Repair : Consent: Verbal Wound Location: lower extremity - right inner thigh Wound's Depth, Shape: into muscle Wound Length (cm): 5 Wound Explored: contaminated Irrigated w/ Saline (ccs): 100 Betadine Prep?: Yes Wound Debrided: minimal Wound Repaired With: rajesh Number of Sutures: 20 Layer Closure?: Yes Sterile Dressing Applied?: Yes Splint Applied?: No Patient Tolerated: Well Complications: None (Leonides De La Cruz) Medical Decision Making PA Attestation All diagnoses and treatment plans were reviewed and discussed with my supervising physician Dr. Gonzales (Leonides De La Cruz) Diagnostic Impression: Primary Impression: Laceration involving tendon Additional Impression: Puncture wound ER Course 39-year-old female with history of chronic low back pain here with significant other due to a laceration. Patient reports that she was climbing up a fence and she fell and people went inside her right thigh and she pulled it out. Patient appears to have a very deep laceration and a square shaped with an obvious hole. Tendon involvement suspected. Patient has no nerve involvement. Denies any tingling numbness. Tenderness and pain. Has not taken medication for symptom relief. Not up-to-date with tetanus shot. Denies all other injuries. Is on no blood thinners. Is sitting comfortably with stable vital signs. No neurovascular deficits noted Ddx considered but are not limited to : Superficial laceration, deep laceration , tendon involvement with laceration, laceration with foreign body Vital signs: are WNL, pt. is afebrile H&PE are most consistent with: Deep lacerations with tendon ORDERS: [place] 10, Motrin, Keflex and Bactrim right femur x-ray ED INTERVENTIONS: Morphine, Zofran, Toradol, [place], wound closure, DISCHARGE: At this time pt. is stable for d/c to home. Will provide printed patient care instructions, and any necessary prescriptions. Care plan and follow up instructions have been discussed with the patient prior to discharge. I explained to the patient that the fold that has made your pole cannot be closed at this time and able to close by secondary intention. Patient understands and agrees. [place] to remove in 10 days. Patient to follow-up with plastic specialist as well as advanced clinical specialist soon as possible. Patient reports that she usually goes to [facility] and will be seen by advanced clinical specialist within the next 24 to 48 hours. I advised her to return to the emergency room immediately if numbness in the leg or tingling or changes of color of the leg. (Leonides De La Cruz) Other X-Ray Diagnostic Results Other X-Ray Diagnostic Results : X-Ray ordered: Right femur # of Views/Limited Vs Complete: 2 View Indication: Pain EP Interpretation: Yes PA Xray: Interpretation reviewed, by supervising MD, and agrees with findings. Interpretation: no dislocation, no soft tissue swelling, no fractures, other - No foreign body Impression: No acute disease Electronically Signed by: Leonides Dowell PA-C (Leonides De La Cruz) Other X-Ray Diagnostic Results : Electronically Signed by: Patricia Otoole documentation of Xray reviewed by me and is accurate, Omi Gonzales MD (Omi Gonzales MD) Last Vital Signs Date Time Temp Pulse Resp B/P (MAP) Pulse Ox O2 Delivery O2 Flow Rate FiO2 06/28/19 18:34 98.2 110 26 117/64 (81) 98 Room Air Status: improved (Leonides De La Cruz) Disposition: HOME, SELF-CARE Condition: Stable Scripts Hydrocodone Bit/Acetaminophen 10-325* (NORCO 10-325*) 1 Each Tablet 1 TAB ORAL Q6H PRN for For Pain, #15 TAB 0 Refills PRN PAIN Prov: Leonides De La Cruz 06/28/19 Ibuprofen (Ibu) 800 Mg Tablet 800 MG PO TID, #30 TAB Prov: Leonides De La Cruz 06/28/19 Trimethoprim/Sulfamethoxazole 160/800* (BACTRIM DS TABLET*) 1 Each Tablet 1 TAB ORAL TWICE A DAY for 7 Days, #14 TAB Prov: Leonides De La Cruz 06/28/19 Cephalexin* (KEFLEX*) 500 Mg Capsule 500 MG ORAL EVERY 6 HOURS for 7 Days, #28 CAP Prov: Leonides De La Cruz 06/28/19 Patient Instructions: Laceration Care, Adult Additional Instructions: Follow-up with advanced clinical specialist, take medication as directed, if worsening symptoms return to the emergency room Leonides De La Cruz Jun 28, 2019 19:58 Omi Gonzales MD Jun 30, 2019 05:31
[2019-06-28] MEDS ORDERED: CEPHALEXIN500 MG ORAL (19:59)
[2019-06-28] MEDS ORDERED: IBU800 MG PO (19:59)
[2019-06-28] MEDS ORDERED: BACTRIM DS TAB1 EAC1 ORAL (19:59)
[2019-06-28] MEDS ORDERED: ACETAMINOPHEN-1 EAC1 ORAL (19:59)
--- NOTE | 2019-06-28 20:11 | Diagnostic Imaging Report ---
EXAM: XR Right Femur, 2 Views CLINICAL HISTORY: Evaluate for foreign body. TECHNIQUE: Frontal and lateral views of the right femur. COMPARISON: None. FINDINGS: Bones/joints: Visualized right femur is unremarkable without fracture or destructive process. Mild osteoarthritic changes about the right knee joint, at the patellofemoral joint. The proximal tibia fibula are unremarkable. No dislocation. Soft tissues: No joint effusion. No radiopaque foreign body within the soft tissues. IMPRESSION: No radiopaque foreign body is detected. Mild osteoarthritic changes about the right knee joint. The visualized femur is unremarkable.
[2019-06-28] MEDS ORDERED: HYDROcodone/Acetamin 10/325 tab ORAL ONE (20:15)
--- NOTE | 2019-06-28 20:20 | NUR ---
ED Nurse Note: wound has been irrigated, stapled and dressed
[2019-06-28] MEDS ORDERED: NORCO 10-325 T1 EACH ORAL (20:33)
[2019-06-28 20:40] VITALS: BP 117/64
--- NOTE | 2019-06-28 20:40 | NUR ---
ED Nurse Note: Pt cleared by health care Provider for discharge. DC instructions/prescription was given and explained to pt and her significant other. both verbalized understanding of teachings. All medical devices such as ID band removed. Pt is AAO x4, ambulatory and left with all personal belongings.
[2019-06-28] MEDS ORDERED: Cephalexin 500mg cap ORAL ONE (20:45)
[2019-06-28] MEDS ORDERED: Bactrim-DS 1 tab ORAL ONE (20:45)
== END 2019-06-28 20:40 | disposition home or self-care (01) ==
LOC: EMR 20:12
DX: S71.111A Laceration without foreign body, right thigh, initial encounter (principal); Z23 Encounter for immunization; S71.131A Puncture wound without foreign body, right thigh, initial encounter; W45.8XXA Other foreign body or object entering through skin, initial encounter; Y92.9 Unspecified place or not applicable; Z88.6 Allergy status to analgesic agent; I10 Essential (primary) hypertension; Z86.711 Personal history of pulmonary embolism
CPT/HCPCS: 12032; 73552; 90471; 90715; 96372; 99283; J1885; J2270; J2405

== ENCOUNTER 2019-07-09 14:13 | Emergency (ER) | payer OTHER ==
[~2019-07-09] VITALS: Ht 165.1 cm; Wt 72.6 kg
[~2019-07-09 14:13] MED LIST changes: +ACETAMINOPHEN-1 EAC1 ORAL; +BACTRIM DS TAB1 EAC1 ORAL; +CEPHALEXIN500 MG ORAL; +IBU800 MG PO
[2019-07-09 14:20] VITALS: BP 116/64
--- NOTE | 2019-07-09 14:58 | Emergency Room Report ---
History of Present Illness General Chief Complaint: Wound Recheck/Suture Removal Source: Patient Present Illness HPI 39-year-old female with no symptom past medical history here with for removal of rajesh from right thigh. The rajesh were placed in about 1 week ago by me. Patient had tendon involvement any time. Patient has pending referral to claims account specialist. Finish antibiotics. No signs of infection noted. Part of the laceration was left open due to to the malformation of the laceration as well as the puncture site. However patient is healing and has full range of motion of the affected side. Only has localized numbness. Allergies: Coded Allergies: ASPIRIN (Verified Allergy, Unknown, 07/13/17) Patient History Past Medical History: see triage record Past Surgical History: none Pertinent Family History: none Now: No Immunizations: UTD Reviewed Nursing Documentation: PMH: Agreed; PSxH: Agreed Nursing Documentation-PMH Past Medical History: No History, Except For Hx Cardiac Problems: Yes - SVT per pt Hx Hypertension: Yes - PE Hx Pacemaker: No Hx Asthma: No Hx COPD: No Hx Diabetes: No Hx Cancer: No Hx Gastrointestinal Problems: Yes Hx Dialysis: No Hx Neurological Problems: Yes Hx Cerebrovascular Accident: No Hx Seizures: No Hx Headaches: Yes - on/off Hx Neurologic Surgery: No Hx Brain Shunt: No Review of Systems All Other Systems: negative except mentioned in HPI Physical Exam Vital Signs Date Time Temp Pulse Resp B/P (MAP) Pulse Ox O2 Delivery O2 Flow Rate FiO2 07/09/19 14:20 98.1 90 18 116/64 (81) 99 Room Air Sp02 EP Interpretation: reviewed, normal General Appearance: no apparent distress, alert, GCS 15, non-toxic Head: normocephalic, atraumatic Eyes: bilateral eye normal inspection, bilateral eye PERRL ENT: hearing grossly normal, normal pharynx, no angioedema, normal voice Neck: full range of motion, supple/symm/no masses Respiratory: chest non-tender, lungs clear, normal breath sounds, no rhonchi, no respiratory distress, no retraction, no wheezing, speaking full sentences Cardiovascular #1: regular rate, rhythm, no edema, no murmur Cardiovascular #2: 2+ femoral (R), 2+ femoral (L), 2+ dorsalis pedis (R), 2+ dorsalis pedis (L) Gastrointestinal: non tender, soft, no mass, no peritonitis, no bruit Rectal: deferred Genitourinary: no CVA tenderness Musculoskeletal: back normal, no calf tenderness Neurologic: alert, motor strength/tone normal, oriented x3, sensory intact, responsive, speech normal Psychiatric: judgement/insight normal, memory normal, mood/affect normal, no suicidal/homicidal ideation Skin: other - Healing laceration right thigh Lymphatic: no adenopathy Procedures Additional Procedure Procedure Narrative 20 rajesh were removed Medical Decision Making PA Attestation All my diagnosis and treatment plans were reviewed ad discussed with my supervising physician Dr. Frost Diagnostic Impression: Primary Impression: Removal of staple Additional Impression: Encounter for re-check of laceration wound ER Course 39-year-old female with no symptom past medical history here with for removal of rajesh from right thigh. The rajesh were placed in about 1 week ago by me. Patient had tendon involvement any time. Patient has pending referral to claims account specialist. Finish antibiotics. No signs of infection noted. Part of the laceration was left open due to to the malformation of the laceration as well as the puncture site. However patient is healing and has full range of motion of the affected side. Only has localized numbness. Ddx considered but are not limited to : Superficial laceration, deep laceration , tendon involvement with laceration, laceration with foreign body Vital signs: are WNL, pt. is afebrile H&PE are most consistent with: Removal of rajesh, recheck of laceration wound ORDERS: Clindamycin was ordered to prevent further infection until patient sees specialist, few tabs of Tylenol 3, Motrin ED INTERVENTIONS: Staple removal, wound clean and dressed DISCHARGE: At this time pt. is stable for d/c to home. Will provide printed patient care instructions, and any necessary prescriptions. Care plan and follow up instructions have been discussed with the patient prior to discharge. Take medication as directed, follow-up primary care provider, also see claims account specialist, if worsening symptoms return to emergency room. At this time patient has no distal tendon involvement and has range of motion. Last Vital Signs Date Time Temp Pulse Resp B/P (MAP) Pulse Ox O2 Delivery O2 Flow Rate FiO2 07/09/19 14:20 98.1 90 18 116/64 99 Room Air Disposition: HOME, SELF-CARE Condition: Stable Scripts Ibuprofen* (MOTRIN*) 600 Mg Tablet 600 MG ORAL Q8H PRN for For Pain, #30 TAB 0 Refills Prov: Leonides De La Cruz 07/09/19 Acetaminophen With Codeine (T#3) (TYLENOL #3 TAB*) Y Tab 1 TAB ORAL Q6HR PRN for For Pain for 3 Days, #10 TAB Prov: Leonides De La Cruz 07/09/19 Clindamycin Hcl (CLINDAMYCIN HCL) 300 Mg Capsule 300 MG ORAL FOUR TIMES A DAY for 7 Days, #28 CAP Prov: Leonides De La Cruz 07/09/19 Patient Instructions: Wound Check Additional Instructions: Take medication as directed, follow-up with your primary care provider, increase oral vision, see a specialist, if worsening symptoms return to the emergency room Leonides De La Cruz Jul 09, 2019 14:58
[2019-07-09] MEDS ORDERED: ACETAMINOPHEN-1 EAC1 ORAL (15:01)
[2019-07-09] MEDS ORDERED: CLINDAMYCIN HC300 MG ORAL (15:01)
[2019-07-09] MEDS ORDERED: IBUPROFEN600 MG ORAL (15:01)
[2019-07-09 15:12] VITALS: BP 116/64
[2019-07-09] MEDS ORDERED: Bacitracin Oint UD TOPIC ONE (15:12)
== END 2019-07-09 15:12 | disposition home or self-care (01) ==
LOC: EMR 14:55
DX: S71.111D Laceration without foreign body, right thigh, subsequent encounter (principal); X58.XXXD Exposure to other specified factors, subsequent encounter; Z48.02 Encounter for removal of sutures; I10 Essential (primary) hypertension; Z88.6 Allergy status to analgesic agent; Z86.711 Personal history of pulmonary embolism
CPT/HCPCS: 99281